=== PATIENT | female | born 1975 | race Caucasian/White ===

== ENCOUNTER 2022-08-21 06:58 | Inpatient (IN) | payer SELFPAY ==
[2022-08-21] VITALS (14 sets, daily range): BP systolic 100–128; BP diastolic 47–67; PULSE 85–104; RESP 16–20; TEMP 36.9–37.5; O2SAT 93–96; BMI 26.1; BMI 25.7
--- NOTE | 2022-08-21 08:09 | ED_ITS ---
HPI - General Adult General Time Seen by Provider: 08:10 Date Seen: 08/21/22 Chief complaint: Abdominal Pain Stated complaint: abdominal pain Time Seen by Provider: 08/21/22 08:09 Source: patient, RN notes reviewed and old records reviewed Mode of arrival: ambulatory Limitations: no limitations History of Present Illness HPI narrative: Patient is a 47-year-old female coming in with ongoing abdominal pain. She started with abdominal pain on 08/19/2022, went to [facility] and was evaluated. She had a normal white blood count, mild hypokalemia, questionable urine for UTI. She was given Rocephin in the department, sent out on Keflex 500 twice a day. She had a CT which showed some changes of enteritis. She has maybe felt warm at home but no documented fever. They also send her home with some oxycodone which did help with the pain but she is out of that now. Her last menstrual period was ending this past Wednesday (today is Wednesday). She initially had nausea vomiting, last vomiting was yesterday but she has not eaten anything. She is able to take some water and keep it down. No diarrhea but states she has passed gas. No urinary symptoms. She has had a prior appendectomy. No noted ill contacts or any travel. Related Data Home Medications Medication Instructions Recorded Confirmed levothyroxine 200 mcg tablet mcg 08/21/22 Allergies Allergy/AdvReac Type Severity Reaction Status Date / Time No Known Drug Allergies Allergy Verified 08/21/22 07:16 Review of Systems Status of ROS: Reports: 10 or more systems reviewed and unremarkable except as noted in History and below PFSH PFSH Social History Smoking Status: Never smoker How often do you have a drink containing alcohol: never AUDIT-C Alcohol total score: 0 Non-prescribed substance use: denies use Exam Const: Vital Signs, click to edit/add: Vital Signs - 24 hr 08/21/22 07:09 08/21/22 08:43 08/21/22 09:30 Temperature 99.5 F Pulse Rate [Pulse Oximeter] 92 90 87 Respiratory Rate 20 Blood Pressure [Le ft Upper Arm] 101/48 L 121/61 108/51 L Pulse Oximetry 96 96 94 Oxygen Delivery Me thod Room Air Room Air Room Air 08/21/22 10:00 08/21/22 11:00 08/21/22 11:30 Temperature Pulse Rate [Pulse Oximeter] 87 85 87 Respiratory Rate Blood Pressure [Le ft Upper Arm] 115/67 119/62 116/56 L Pulse Oximetry 94 93 93 Oxygen Delivery Me thod Room Air Room Air Room Air Documenting provider has reviewed patient's vital signs: yes Common normals: no apparent distress, average body habitus, oriented x3, no limitations, alert and well nourished General appearance: cooperative, comfortable, well kempt, well developed and in distress Other: Patient is up in room slowly pacing, uncomfortable but still very pleasant. HENMT: Common normals: normocephalic, head/scalp atraumatic and hearing grossly normal bilaterally Head and scalp: normocephalic and atraumatic Eye: Common normals: PERRL, EOMs intact bilaterally, conjunctivae normal and no scleral icterus Conjunctiva: conjunctiva(e) normal Pupil: PERRL Neck & C-Spine: Common normals: full ROM, no lymphadenopathy, supple, no meningeal signs, no JVD and thyroid normal Thyroid: thyroid normal Resp: Common normals: normal respiratory effort, no retractions, no use of accessory muscles and clear to auscultation bilaterally Auscultation: clear to auscultation bilaterally Cardio: Common normals: no JVD, regular rate, regular rhythm, S1 normal heart sound, S2 normal heart sound, no gallops, no clicks and no murmurs Rate: regular rate Rhythm: regular rhythm Heart sounds: S1 normal and S2 normal GI: Other: Abdomen is mildly distended, no bowel sounds, tender throughout with mild rebound, no guarding. Neuro: Common normals: oriented x3 Sensorium/orientation: alert Meningeal signs: no meningeal signs Psych: Appearance: well kempt Course Course Hospital Course: We will start an IV, initiate NS 1L over 2 hours, 2mg IV morphine and 15mg IV toradol for pain management. Start with abdominal imaging as she just had a CT, recheck labs. Have concerns clinically for ileus vs. obstruction. May need to proceed to CT if needed but will try to avoid if possible given she just had this imaging, want to avoid this radiation if possible. Reevaluation(s) Reevaluation #1: Saw patient coming back from her abdominal imaging plain films. Could tell that she was a bit uncomfortable from the bumping. Her white blood count is back elevated, was normal at [facility] 2 days ago. Her C-reactive protein is quite elevated. On her flat and upright AC the outline of the large colon but do not see any evidence of any ileus. Given her pain, her worsening clinical symptoms as well as increasing white blood count, do think we need to proceed with reimaging on the CT. Time: 09:17 Consultations Consultation #1: Spoke with Dr. Rinaldi her surgeon regarding this case. She believes the patient can stay here, NPO, supportive cares and IV antibiotics. We discussed Cipro and Flagyl. I then subsequently spoke to our hospitalist Dr. Lucia who will be assuming care. Time: 13:00 Vital Signs Vital signs: Initial Vital Signs Temperature 99.5 F 08/21/22 07:09 Temperature Source Temporal Artery Scan 08/21/22 07:09 Pulse Rate 92 08/21/22 07:09 Blood Pressure 101/48 L 08/21/22 07:09 Blood Pressure Mean 65 08/21/22 07:09 Blood Pressure Position Supine 08/21/22 07:09 Pulse Oximetry 96 08/21/22 07:09 Oxygen Delivery Method 08/21/22 07:09 Vital Signs Temperature 99.5 F 08/21/22 07:09 Pulse Rate 92 08/21/22 07:09 Blood Pressure 101/48 L 08/21/22 07:09 Pulse Oximetry 96 08/21/22 07:09 Oxygen Delivery Method 08/21/22 07:09 Temperature 99.5 F 08/21/22 07:09 Pulse Rate 87 08/21/22 11:30 Respiratory Rate 20 08/21/22 08:43 Blood Pressure 116/56 L 08/21/22 11:30 Pulse Oximetry 93 08/21/22 11:30 Oxygen Delivery Method 08/21/22 11:30 Medical Decision Making Lab Data Lab results reviewed: Yes I reviewed the patient's lab results Labs: Lab Results 08/21/22 08/21/22 08/21/22 Range/Units 08:18 08:28 08:28 WBC 13.68 H (4.50-11.00) K/uL RBC 4.03 (4.00-5.20) m/uL Hgb 11.7 L (12.0-16.0) gm/dL Hct 35.0 (33.0-51.0) % MCV 87 (80-100) fL MCH 29 (26-34) pg MCHC 33 (32-36) gm/dL RDW Coeff of Vivi 13.0 (11.5-15.5) % Plt Count 240 (140-440) K/uL Neut % (Auto) 89.7 H (42.0-72.0) % Lymph % (Auto) 5.4 L (20-44) % [place] % (Auto) 3.2 (0.0-11.0) % Eos % (Auto) 1.0 (0.0-7.0) % Baso % (Auto) 0.1 (0.0-3.0) % Neut # (Auto) 12.30 H (1.7-7.0) K/uL Lymph # (Auto) 0.70 L (0.90-2.90) K/uL [place] # (Auto) 0.40 (0.00-0.90) K/UL Eos # (Auto) 0.10 (0.00-0.50) K/uL Baso # (Auto) 0.00 (0.00-0.30) K/uL Abs Immat Gran (auto) 0.10 (0.00-0.30) K/uL Imm/Tot Granulo (auto) 0.6 % Sodium 132 L (135-149) mmol/L Potassium 3.3 L (3.6-5.1) mmol/L Chloride 97 (96-114) mmol/L Carbon Dioxide 28 (20-32) mmol/L BUN 7 (5-24) mg/dL Creatinine 0.6 (0.5-1.5) mg/dL Estimated Creat Clear 88.41 Estimated GFR 112 ml/min Glucose 91 (60-115) mg/dL Lactate (0.5-1.9) mmol/L Calcium 8.4 (8.4-10.6) mg/dL Total Bilirubin 0.8 (0.1-1.5) mg/dL AST 19 (12-35) U/L ALT 14 (4-35) U/L Alkaline Phosphatase 104 (40-150) U/L C-Reactive Protein 8.9 H (0.5-1.0) mg/dL Total Protein 6.8 (6.0-8.3) g/dL Albumin 3.6 (3.3-5.0) g/dL Urine Color Yellow (Yellow) Urine Appearance Clear (Clear) Urine pH 6.0 (5.0-8.5) Ur Specific Anita 1.020 (1.000-1.030) Urine Protein Trace A (Negative) Urine Glucose (UA) Negative (Negative) Urine Ketones 4+ A (Negative) Urine Blood 1+ A (Negative) Urine Nitrite Negative (Negative) Urine Bilirubin 1+ A (Negative) Urine Urobilinogen 0.2 (0.2-1.0) Ur Leukocyte Esterase Negative (Negative) Urine RBC 0-2 (0-2) Urine WBC 0-2 (0-5) Ur Squamous Epith Cells Few (None-Few) Urine Bacteria None (None) SARS-CoV-2 (PCR) (Negative) 08/21/22 08/21/22 Range/Units 08:28 08:28 WBC (4.50-11.00) K/uL RBC (4.00-5.20) m/uL Hgb (12.0-16.0) gm/dL Hct (33.0-51.0) % MCV (80-100) fL MCH (26-34) pg MCHC (32-36) gm/dL RDW Coeff of Vivi (11.5-15.5) % Plt Count (140-440) K/uL Neut % (Auto) (42.0-72.0) % Lymph % (Auto) (20-44) % [place] % (Auto) (0.0-11.0) % Eos % (Auto) (0.0-7.0) % Baso % (Auto) (0.0-3.0) % Neut # (Auto) (1.7-7.0) K/uL Lymph # (Auto) (0.90-2.90) K/uL [place] # (Auto) (0.00-0.90) K/UL Eos # (Auto) (0.00-0.50) K/uL Baso # (Auto) (0.00-0.30) K/uL Abs Immat Gran (auto) (0.00-0.30) K/uL Imm/Tot Granulo (auto) % Sodium (135-149) mmol/L Potassium (3.6-5.1) mmol/L Chloride (96-114) mmol/L Carbon Dioxide (20-32) mmol/L BUN (5-24) mg/dL Creatinine (0.5-1.5) mg/dL Estimated Creat Clear Estimated GFR ml/min Glucose (60-115) mg/dL Lactate 0.8 (0.5-1.9) mmol/L Calcium (8.4-10.6) mg/dL Total Bilirubin (0.1-1.5) mg/dL AST (12-35) U/L ALT (4-35) U/L Alkaline Phosphatase (40-150) U/L C-Reactive Protein (0.5-1.0) mg/dL Total Protein (6.0-8.3) g/dL Albumin (3.3-5.0) g/dL Urine Color (Yellow) Urine Appearance (Clear) Urine pH (5.0-8.5) Ur Specific Anita (1.000-1.030) Urine Protein (Negative) Urine Glucose (UA) (Negative) Urine Ketones (Negative) Urine Blood (Negative) Urine Nitrite (Negative) Urine Bilirubin (Negative) Urine Urobilinogen (0.2-1.0) Ur Leukocyte Esterase (Negative) Urine RBC (0-2) Urine WBC (0-5) Ur Squamous Epith Cells (None-Few) Urine Bacteria (None) SARS-CoV-2 (PCR) Negative SARS-CoV-2 (Negative) Imaging Data Abdominal x-ray: Attestation: I have reviewed the pertinent imaging results. My impression: I do not see any definitive evidence on her flat and upright, can see the large bowel outlined. Was anticipating that I would probably see more small-bowel but do not. Will await the Radiology over-read an in the interim I am ordering a CT abdomen and pelvis. Radiologist's impression: Patient: IRAIS DAVALOS Facility:?[facility] Patient ID:?[id number] Site Patient ID:?[id number]. Site :?[id number] Study:?XRay Abdomen -08/21/2022 9:03:17 AM Ordering Physician:Jesús Willis Final Report: INDICATION: Abdominal pain. TECHNIQUE: Flat and upright views of the abdomen and pelvis. FINDINGS: Strands of fibrosis or atelectasis at the left lung base. No free air on the upright image. Scattered gas and stool throughout portions of the colon and rectum. No fecal impaction. No colonic constipation. Mild distention of 2 small bowel loops within the left mid to upper quadrant. This is nonspecific. A localized ileus or partial obstruction could not be entirely excluded. Follow-up radiographs are recommended in 24-48 hours depending on the clinical picture. No radiodense urinary tract calculi are identified. IMPRESSION: Two mildly prominent left mid upper quadrant small bowel loops nonspecific. Localized ileus or even an early/partial small-bowel obstruction would be difficult to exclude. Consider radiographic follow up in 24-48 hours. No oscar obstruction. No free air. Dictated by Tirso Bergman MD @ 08/21/2022 9:21:55 AM (Electronic Signature) CT scan - abdomen: Attestation: I have reviewed the pertinent imaging results. Radiologist's impression: Patient: IRAIS DAVALOS Facility:?[facility] Patient ID:?[id number] Site Patient ID:?[id number]. Site :?1975 Study:?CT Abdomen/Pelvis W/ 68CC [id number]/[id number] 9:46:34 AM Ordering Physician:Jesús Willis Final Report: INDICATION: INC ABD PAIN, N/V, WBC ELEVATED TECHNIQUE: CT abdomen and pelvis with 68CC [id number] IV contrast. COMPARISON: None. FINDINGS: The liver is normal in size, shape and attenuation. Moderate distension of the gallbladder without evidence of wall thickening or pericholecystic fluid. No biliary duct dilation. The spleen, adrenal glands and pancreas are within normal limits. The kidneys are unremarkable. No evidence of bowel obstruction. There are several abnormally dilated loops of small bowel throughout the abdomen most notably within the right greater than left lower abdomen. There is prominent surrounding inflammation as well as fluid predominantly contained within the mesentery. Some of which may demonstrate early organization suspicious for abscess, for example on series 4, image 37 measuring 1.1 x 2.2 x 2.4 cm). No evidence of free air or pneumatosis. The uterus appears unremarkable. Low-density lesion right adnexa likely a follicular cyst measuring 1.7 cm. Mild patchy bibasilar atelectasis or consolidation. IMPRESSION: There are several abnormally dilated loops of small bowel throughout the abdomen most notably within the right greater than left lower abdomen. There is prominent surrounding inflammation as well as a small amount of fluid predominantly contained within the mesentery. Some of the fluid may demonstrate early organization suspicious for abscess, for example on series 4, image 37 measuring 1.1 x 2.2 x 2.4 cm. Overall, findings are concerning for severe enteritis predominantly involving the distal small bowel (ileitis). Of note, the appendix is not definitely visualized and acute appendicitis (perhaps ruptured) can`t entirely be excluded. Mild patchy bibasilar atelectasis or consolidation. Please note that all CT scans at this facility use dose modulation, iterative reconstruction, and/or weight-based dosing when appropriate to reduce radiation dose to as low as reasonably achievable. Dictated by Bautista Vitale MD @ 08/21/2022 11:03:31 AM (Electronic Signature) Critical Care Time Critical Care Time Critical Care Time: No Discharge Plan Discharge Clinical Impression: Enteritis Patient Disposition: Admitted As Inpatient Condition: Stable Prescriptions: No Action levothyroxine 200 mcg tablet Label Comments: TAKE 1 TABLET EVERY DAY BY ORAL ROUTE. Follow Up/Referrals: Cesar Quintana MD [Primary Care Provider] -
--- NOTE | 2022-08-21 08:16 | CRLHL7_ITS ---
For Patients: As a result of the Century Cures Act, medical imaging exams and procedure reports are released immediately into your electronic medical record. You may view this report before your referring provider. If you have questions, please contact your health care provider. INDICATION: Abdominal pain. TECHNIQUE: Flat and upright views of the abdomen and pelvis. FINDINGS: Strands of fibrosis or atelectasis at the left lung base. No free air on the upright image. Scattered gas and stool throughout portions of the colon and rectum. No fecal impaction. No colonic constipation. Mild distention of 2 small bowel loops within the left mid to upper quadrant. This is nonspecific. A localized ileus or partial obstruction could not be entirely excluded. Follow-up radiographs are recommended in 24-48 hours depending on the clinical picture. No radiodense urinary tract calculi are identified. IMPRESSION: Two mildly prominent left mid upper quadrant small bowel loops nonspecific. Localized ileus or even an early/partial small-bowel obstruction would be difficult to exclude. Consider radiographic follow up in 24-48 hours. No oscar obstruction. No free air. Dictated by Tirso Bergman MD @ 08/21/2022 9:21:55 AM (Electronically Signed)
--- OUTSIDE RECORDS SUMMARY | 2022-08-21 08:21 | XMS_ITS | Encounter Summary ---
:1975 Author Reason for Visit None recorded. Assessment and Plan 1. Hypothyroidism Increase levothyroxine from 175 to 200m cg. Recheck thyroid levels 4 weeks. Will call patient in 2 weeks to check on symptoms. She should call in the meantime with concerns. ? levothyroxine 200 mcg tablet ? TSH, serum or plasma ? T4, free, serum ? T3, free, serum or plasma 2. Screening for malignant neoplasm of breast Screening mammogram. Follow up pending results. ? MAMMO, screening, bilateral - ABRAN vi sit, Cymro-speaking 3. Screening for malignant neoplasm of colon FOBT kit provided to patient ? fecal occult blood test (FOBT) kit Discussion Note: None recorded.Patient educational handouts: No information available. Plan of Care Reminders Provider Appointments Lab Work 09/01/2022 2:00PM Willa [facility] CPT Lab TSH, Serum or Plasma 09/05/2022 ? ? T4, Free, Serum 09/05/2022 ? ? T3, Free, Serum or Plasma 09/05/2022 ? Referral None recorded. ? ? Procedures None recorded. ? ? Surgeries None recorded. ? ? Imaging MAMMO, Screening, Bilateral 08/05/2022 ? Medications Name Start Date ? ? cholecalciferol (vitamin D3) 50 mcg (2,000 unit) capsu le ? TAKE 1 TABLET EVERY DAY BY ORAL ROUTE. cholecalciferol (vitamin D3) 50 mcg (2,000 unit) table t ? Take 1 tablet every day by oral route. levothyroxine 175 mcg tablet ? TAKE 1 TABLET EVERY DAY BY ORAL ROUTE. levothyroxine 200 mcg tablet ? TAKE 1 TABLET EVERY DAY BY ORAL ROUTE. Medications Administered None recorded. Vitals Height Weight BMI Blood Pressure 4 ft 10.5 in 138 lbs 28.4 kg/m2 96/60 mm[Hg] Results Lab Results None recorded. Allergies Code Code System Name Reaction Severity Onset NKDA ? ? ? Notes: Allergen: NO KNOWN ALLERGIES Problems Name Status Onset Date Source ? Helicobacter Pylori-associated Gastritis Active 019 ? 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 Hypothyroidism Active 01/06/2021 ? Vitamin D Deficiency Active 01/06/2021 ? 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 Procedures Date Name Performed by ? 10/11/1985 Appendectomy Information not avai lable 08/05/2022 MAMMO, Screening, Bilateral Information not available Vaccine List None recorded. Social History Tobacco Smoking Status Never Smoker Live alone or with others? with others Notes: dae wild and daughter's boyfriend What is your level of alcohol None consumption? How many children do you have? 4 Are you currently employed? Y Which illicit or recreational drugs None have you used? Are you sexually active? N What is your level of caffeine Moderate consumption? What is your exercise level? None What is your occupation? [employer] Family History Relation Problem Onset Age of Age Notes Father No current problems or (No Information) N/A ( No Notes) disability Mother No current problems or (No Information) N/A ( No Notes) disability Functional Status Unknown. Past Encounters 08/05/2022 Hypothyroidism; Screening for Malignant Neoplasm of Breast; Screening for Malignant Neoplasm of Colon [place], [place]: [address] [place] [address], Ph. History of Present Illness Note: <div>Alva presents for thyroid follow up and a referral for screening mammogram </div><div>
</div><div>1. Hypothyroidism: Her dose of Levothyroxine was increased from 150 to 175mcg ~2 weeks ago. Since before the dose increase, she has felt more tired, her hair is falling out, her skin is dry, and she's noticed diarrhea. The dose increase did not seem to help. Last TSH 3 weeks ago was 124.23. </div><div>
</div><div>2. ABRAN visit for mammogram </div><div>Last mammogram date and result: 02/2021 - normal &lt ;/div><div>Personal history of breast issues or concerns: none </div><div>Curent Breast ROS: denies breast lumps, pain, nipple discharge/itching, rash, change in appearance</div><div>Family history of breast cancer: none </div><div>Breast self awareness discussed - patient performs regularly at home</div>Review of Systems: ROS as noted in the HPI Review of Systems None recorded. Physical Exam ? 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 Mood and Affect: active and alert, normal mood, norm al affect Skin: Appearance: no rashes, no le sions Neck: Neck: supple, trachea midlin e, no masses, FROM. Thyroid: no nodules, non-tender, diffusely enlarg ed Lungs: Auscultation: clear to auscu ltation, no wheezing, no rales/crackles, no rhonchi Cardiovascular: Auscultation: RRR, no murmur Breast: Inspection/Palpation: no ski n changes, no abnormal secretions, nipple appearance normal, no tender ness, no distinct masses Lymph Nodes: Palpation: non tender subman dibular nodes, non tender axillary nodes
--- OUTSIDE RECORDS SUMMARY | 2022-08-21 08:21 | XMS_ITS ---
:1975 Author Care Team Providers Name Role Phone Agusto Minaya Primary Care Provider Unavailable Allergies Code Code System Name Reaction Severity Status Onset NKDA ? Notes: Allergen: NO KNOWN ALLERGIES Medications Name Status Start Date Stop Date ? ? amoxicillin 500 mg capsule Completed 03/15/201908/20 take 1 capsule by oral route every 8 hours cephalexin 500 mg capsule Completed 03/13/20152014 take 1 capsule PO QID x 10 cholecalciferol (vitamin D3) 1,250 mcg (50,000 unit) capsule Com pleted ? 05/13/2022 TAKE 1 CAPSULE BY MOUTH ONCE A WEEK cholecalciferol (vitamin D3) 25 mcg (1,000 unit) capsule Complet ed ? 05/13/2022 Take 1 capsule every day by oral route. cholecalciferol (vitamin D3) 25 mcg (1,000 unit) tablet Complete d ? 05/13/2022 TAKE ONE TABLET BY MOUTH EVERY DAY. cholecalciferol (vitamin D3) 50 mcg (2,000 unit) capsule Active ? Not available TAKE 1 TABLET EVERY DAY BY ORAL ROUTE. cholecalciferol (vitamin D3) 50 mcg (2,000 unit) tablet Active ? Not available Take 1 tablet every day by oral route. clarithromycin 500 mg tablet Completed 03/15/201907/2020 take 1 tablet by oral route every 12 hours Florajen Acidophilus 20 billion cell capsule Completed ? 05/13/2022 levothyroxine 112 mcg tablet Completed 07/19/2017 take 1 tablet by oral route every day levothyroxine 137 mcg tablet Completed ? 05/2022 TAKE 1 TABLET BY MOUTH DAILY levothyroxine 150 mcg tablet Completed ? 03/2022 TAKE 1 TABLET EVERY DAY BY ORAL ROUTE. levothyroxine 175 mcg tablet Active ? Not available TAKE 1 TABLET EVERY DAY BY ORAL ROUTE. levothyroxine 200 mcg tablet Active ? Not available TAKE 1 TABLET EVERY DAY BY ORAL ROUTE. multivitamin tablet Completed ? 05/13/2022 take 1 tablet by oral route every day naproxen sodium 220 mg tablet Completed 03/13/2015 take 1 tablet by oral route every 12 hours as needed omeprazole 20 mg capsule,delayed release Completed 019 05/13/2022 take 1 capsule by oral route 2 times every day before a meal Synthroid 125 mcg tablet Completed ? take 1 tablet by oral route every day terbinafine HCl 250 mg tablet Completed ? Vitamin D2 1,250 mcg (50,000 unit) capsule Completed ? 01/08/2021 take 1 capsule by oral route three times per week Problems Name Status Onset Date Source ? Helicobacter Pylori-associated Gastritis Active ? 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 Hypothyroidism Active 01/06/2021 ? Vitamin D Deficiency Active 01/06/2021 ? 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 Procedures Date Name Performed by ? 10/11/1985 Appendectomy Information not avai lable 01/08/2021 MAMMO, Screening, Bilateral Information not available 08/05/2022 MAMMO, Screening, Bilateral Information not available Results Lab Results Date Name Specimen Result Interpretation Description Value Range Status Address ? 07/14/2022 TSH + Free T4, High Tsh 124.23 0.35-4.94 Fi nal [facility] Serum uIU/mL uIU/mL Clinic: [address], [place] 04/08/2022 TSH + Free T4, ? TSH Value 1.59 ? F inal [facility] Serum Health Laboratory : [address], [facility] 04/08/2022 TSH + Free T4, High Tsh 7.32 0.35-4.94 Fi nal [facility] Serum uIU/mL uIU/mL Medical Laboratori es : [address], [facility] 03/19/2021 T4, Free, Serum ? Tsh 1.08 ? [facility] : [address], [facility] 03/19/2021 TSH, Serum or ? Tsh 1.78 ? Final Plasma 02/05/2021 TSH + Free T4, ? Tsh 0.13 ? Final Serum 01/08/2021 Pap, LB + hr HPV ? No ? ? ? [facility] observation [place] recorded. Clinic - Lab: [address], [place] 01/08/2021 Vitamin D, Low Vitamin D 12.7 30-80 Final [facility] 25-Hydroxy, Total NG/mL NG/mL Healt h Total, Serum Labo ratory: [address], [place] ? ? Normal Free T4 1.09 0.7-1.8 Final [facility] NG/dL NG/dL Health Laboratory : [address], [place] 01/08/2021 Thyroperoxidase High Anti Tpo 74.82 <5.61 F inal Ab, Serum Antibody IU/mL IU/mL 01/08/2021 TSH + Free T4, ? Tsh 12.09 ? Final Serum 12/04/2020 TSH, Serum or ? Tsh 35.04 ? Final Plasma 08/27/2020 TSH, Serum or ? Tsh 238.63 ? Final [facility] One: [address] 08/26/2020 CMP, Serum or ? No ? ? ? Plasma observation recorded. 08/26/2020 CBC W/ Auto Diff ? No ? ? ? observation recorded. 08/26/2020 Lipid Panel, ? No ? ? ? Serum observation recorded. 08/26/2020 CMP, Serum or ? No ? ? ? Plasma observation recorded. ? Urinalysis, ? No ? ? ? Complete observation recorded. Past Encounters 08/05/2022 Hypothyroidism; Screening for Malignant Neoplasm of Breast; Screening for Malignant Neoplasm of Colon [place]enia [place], [employer]: [address] [place] [address], Ph. 05/13/2022 Hypothyroidism; Vitamin D Deficiency; Pl [place] Fasciitis Yesenia East [employer]ER: [address] [place] [address], Ph. Social History Tobacco Smoking Status Never Smoker Vaccine List None recorded. Plan of Care Reminders Provider Appointments None recorded. ? ? Lab None recorded. ? ? Referral None recorded. ? ? Procedures None recorded. ? ? Surgeries None recorded. ? ? Imaging None recorded. ? ? Vitals 08/05/2022 01:00PM [facility] 46 Height Weight BMI Blood Pressure 4 ft 10.5 in 138 lbs 28.4 kg/m2 96/60 mm[Hg] 05/13/2022 03:15PM ESTABLISHED PATIENT Height Weight BMI Blood Pressure 4 ft 10.5 in 142 lbs 29.2 kg/m2 98/58 mm[Hg] 01/08/2021 01:00PM [facility] OFFICE VISIT Height Weight BMI Blood Pressure 4 ft 10.5 in 142.5 lbs 29.3 kg/m2 106/67 mm[Hg] 07/03/2019 Blood Pressure 102/64 mm[Hg] 03/15/2019 Blood Pressure 110/60 mm[Hg] 02/15/2019 Blood Pressure 107/61 mm[Hg] 07/21/2018 Blood Pressure 107/71 mm[Hg] 03/16/2018 Blood Pressure 90/52 mm[Hg] 02/02/2018 Blood Pressure 99/61 mm[Hg] 07/20/2017 Blood Pressure 106/50 mm[Hg] 03/24/2017 Blood Pressure 90/56 mm[Hg] 08/19/2016 Blood Pressure 96/55 mm[Hg] 08/03/2016 Blood Pressure 97/65 mm[Hg] 03/16/2016 Blood Pressure 100/65 mm[Hg] 05/15/2015 Blood Pressure 95/57 mm[Hg] 03/13/2015 Blood Pressure 96/52 mm[Hg]
--- OUTSIDE RECORDS SUMMARY | 2022-08-21 08:21 | XMS_ITS | Clinical Summary ---
:1975 Author Organization [facility] [place] [address] Care Team Providers Name Role Phone Madhuri Aquino RN, CUPOLA TAPPER Primary Care Provider Allergies No known active allergies Medications Medication Sig Dispensed Refills Start Date End Date Status Take 1 tablet by 30 tablet 5 04/24/2014 Ac tive vitamin-folic acid 1 mouth once daily. mg ( VITAMIN) tablet/capsule ethinyl Apply 1 Patch on 9 Patch 3 07/09/2014 Ac tive estradiol-norelgestr dry, clean, om (ORTHO EVRA) hairless skin once 150-35 mcg/24 hr weekly. Use for 3 patch weeks, then use no patch for 1 week Breast Pump - For home use. 1 unit 0 08/02/2014 A ctive Purchase Gestation age at delivery: 38 6/7 weeks. Reason for need: back to work. Length of need: PRN levothyroxine Take 1 tablet by 30 tablet 0 12/10/2014 Active (SYNTHROID) 100 mcg mouth before tabletIndications: breakfast. Hypothyroid levothyroxine Take 1 tablet by 60 tablet 0 12/14/2014 Active (SYNTHROID) 125 mcg mouth before tabletIndications: breakfast. Hypothyroid ondansetron (ZOFRAN Place 1 Tablet (4 10 Tablet 0 08/19/2022 Active ODT) 4 mg mg) on the tongue disintegrating every 8 hours if tabletIndications: needed for Generalized Nausea/Vomiting. abdominal pain potassium chloride Take 1 Tablet (10 6 Tablet 0 08/19/2022 Active (K-DUR, KLOR-CON mEq) by mouth two M10) 10 mEq times daily with tabletIndications: meals. Hypokalemia HYDROcodone-acetamin Take 1 Tablet by 5 Tablet 0 08/19/2022 Active ophen (NORCO) 5-325 mouth every 4 hours mg per if needed for Pain. tabletIndications: Max acetaminophen Generalized dose: 4000 mg in 24 abdominal pain hrs. cephalexin (KEFLEX) Take 1 Capsule (500 14 Capsule 0 2 Active 500 mg mg) by mouth two 2 capsuleIndications: times daily for 7 Urinary tract days. infection without hematuria, site unspecified Active Problems Problem Noted Date Gestational diabetes 04/07/2014 Abdominal pain in 03/20/2014 related carpal tunnel syndrome, antepartum 0 03/20/2014 Hypothyroidism in , antepartum 03/20/2014 Other normal , not first 02/16/2014 Overview: Late care starting at 24 weeks. Will transfer care to Dr. Quintana for co ntinued care. Kimmie Rivas D.O. 02/18/2014 10:44 AM Advanced maternal age in 02/16/2014 Late care 02/16/2014 Vitamin D deficiency 12/23/2011 Hypothyroid Encounters Date Type Specialty Care Team Description 08/19/2022 Emergency Valdez Fernandes Gener alized abdominal pain (Primary Dx); Urinary tract i nfection without hematuria, site unspecified; Hypokalemia 08/19/2022 Travel 07/14/2022 Lab Requisition Yesenia East NP from Last 3 Months Immunizations Name Administration Dates Next Due Influenza, IIV4 07/18/2019, 07/09/2014 Tdap 03/20/2014 Social History Tobacco Use Types Packs/Day Years Used Date Never Smoker Smokeless Tobacco: Never Used Tobacco Cessation: Counseling Given: Yes Alcohol Use Standard Drinks/Week Comments No 0 (1 standard drink = 0.6 oz pure alcoho l) Sex Assigned at Date Recorded Not on file COVID-19 Exposure Response Date Recorded In the last 10 days, have you been in contact with No / Unsu re 08/19/2022 2:56 PM SHAREPOINT DESIGNER DEVELOPER someone who was confirmed or suspected to have Coronavirus/COVID-19? Obstetrics History Para Term AB IAB SAB Ectopic Multiple Living Live Births 5 3 3 1 1 3 Date Outcome GA Total Labor/2nd/3rd Weight Sex Delivery Anes PTL Samantha A 1 A5 Name Clin Labor Comments: System Generated. Please review and update details. SAB Term 39w0d Vag Term 40w0d Vag Term 42w0d Vag Last Filed Vital Signs Vital Sign Reading Time Taken Comments Blood Pressure 101/64 08/19/2022 4:40 PM SHAREPOINT DESIGNER DEVELOPER Pulse 107 08/19/2022 4:40 PM [employer]POINT DESIGNER DEVELOPER Temperature 36.8 ??C (98.2 ??F) 08/19/2022 3:00 PM SH[employer]POINT DESIGNER DEVELOPER Respiratory Rate 16 08/19/2022 3:00 PM SHAREPOINT DESIGNER DEVELOPER Oxygen Saturation 97% 08/19/2022 4:40 PM SHAREPOINT DESIGNER DEVELOPER Inhaled Oxygen Concentration - - Weight 61.1 kg (134 lb 11.2 oz) 08/19/2022 3:00 PM SH[employer]POINT DESIGNER DEVELOPER Height 154.9 cm (5' 1) 08/19/2022 3:00 PM SHAREPOINT DESIGNER DEVELOPER Body Mass Index 25.45 08/19/2022 3:00 PM SHAREPOINT DESIGNER DEVELOPER Plan of Treatment Upcoming Encounters Date Type Specialty Care Team Description 09/16/2022 Appointment Health Maintenance Due Date Last Done Comments COVID-19 vaccine series (#1) 1975 Depression screening for age 12+ 1988 BMI (ht and wt on same day) for 01/29/1994 age 18+ Hepatitis C screening for age 0401/29/1994 18-79 Colonoscopy through age 75 01/29/2021 Mammogram for age 45-75 02/26/2022 02/26/2021 Influenza for age 9-49 06/11/2022 07/18/2019, 07/09/2014 Pap test for age 21-65 01/09/2024 01/08/2021, 01/08/2021, 12/12/2014, Additional history exists Tetanus booster 03/20/2024 03/20/2014 Lipids for age 45-75 12/04/2025 12/04/2020, 08/26/2020, 03/16/2016 Tdap Completed 03/20/2014 Procedures Procedure Name Priority Date/Time Associated Comments Diagnosis CT ABDOMEN PELVIS W STAT 08/19/2022 4:05 PM Re sults for this [employer] DESIGN[employer] DEVELOPER procedure are i n the results section. URINE CULTURE DOMINGO 08/19/2022 3:29 PM Results for this [employer]POINT DESIGNER DEVELOPER procedure are i n the results section. URINALYSIS STAT 08/19/2022 3:29 PM Results f or this MICROSCOPIC [employer] DESIGNER DEVELOPER procedure are i n the results section. URINE STAT 08/19/2022 3:29 PM Result s for this [employer]POINT DESIGNER DEVELOPER procedure are i n the results section. UA W/ SEDIMENT EXAM STAT 08/19/2022 3:29 PM Re sults for this REFLEXED PER CRITERIA SHAREPOINT DESIGNER DEVELOPER proced ure are in the results section. LIPASE STAT 08/19/2022 3:17 PM Results f or this [employer] DESIGN[employer] DEVELOPER procedure are i n the results section. HEPATIC FUNCTION STAT 08/19/2022 3:17 PM Resul ts for this PANEL SHAREPOINT DESIGNER DEVELOPER procedure are i n the results section. CBC W PLT NO DIFF STAT 08/19/2022 3:17 PM Resu lts for this [employer]POINT DESIGNER DEVELOPER procedure are i n the results section. BASIC METABOLIC PANEL STAT 08/19/2022 3:17 PM Results for this [employer] DESIGN[employer] DEVELOPER procedure are i n the results section. T4,FREE Routine 07/14/2022 1:16 PM Results f or this CDT procedure are i n the results section. TSH WITH REFLEX Routine 07/14/2022 1:16 PM Result s for this CDT procedure are i n the results section. from Last [address] ABDOMEN PELVIS W (08/19/2022 4:05 PM SHAREPOINT DESIGNER DEVELOPER) Anatomical Region Laterality Modality Abdomen, Pelvis, AORTA, LIVER, SPLEEN Co mputed Tomography Specimen (Source) Anatomical Collection Method Collection Time Re ceived Time Location / / Volume Laterality 08/19/2022 4:47 PM SHAREPOINT DESIGNER DEVELOPER Narrative 08/19/2022 4:47 PM SHAREPOINT DESIGNER DEVELOPER For Patients: ??As a result of the Century Cures Act, medical imaging exams and procedure report s are released immediately into your [facility] medical record. ??You may view this report before your referring provider. ??If you have questions, please contact your health care provider. Indication: Acute abdominal Pain Technique: Volumetric multidetector CT images of th e abdomen and pelvis were obtained after the administration of intravenous contrast. 100 cc Omnipaque 300 low osmolar intrave nous contrast Comparison: None available. Findings: The lung bases are clear. The liver is enlarged with mild hepatic steatosis. The portal vein is patent. The gallbladder is unremarkable without evidence of radiopaque calculus. There is no significant common biliary d uctal dilatation or abrupt cut off. The spleen is normal in enhancement and size. There is mild chronic gastritis change w ith minimal thickening of the gastric antrum and minimal gastric mucosal hyperemia. The pancreas is normal in enhancement wi thout significant atrophy. The adrenal glands are unremarkable. The kidneys demonstrate preserved cortic omedullary differentiation without evidence of obstructive uropathy. There is demonstration of focal segmenta l thickening and mild perienteric inflammatory change of the distal small bowel. The appendix is not visualized. There is no significant mesenteric, retr operitoneal, or pelvic sidewall lymph nodes. The aorta is nonaneurysmal. ??There is n o significant atherosclerotic disease appreciated. There is questionable mild thickening ve rsus nondistention of the bladder. There is a mildly heterogeneous appearing myometrium. There is no free fluid or free air. There is a small fat containing umbilica l hernia. The lumbar vertebral body heights are gr ossly maintained in satisfactory alignment without evidence of displaced fracture, lytic or blastic lesion. Impression: Demonstration of marked mucosal enhancem ent and dilatation of distal loops of small bowel with questionable mild perienteric inflammatory change likely representing evolving infectious or inflammatory enteritis. Mild hepatomegaly and hepatic steatosis. Mild chronic gastritis changes. No other acute intra-abdominal abnormali ties are appreciated. Please note that all CT scans at this [facility] use dose modulation, iterative reconstruction, and/or weight-based dosing when appropriate to reduce radiation dose to as low as reasonably achievable. Dictated by Dwight Lemus MD @ 2 4:47:55 PM (Electronically Signed) Procedure Note Dwight Lemus MD - 08/19/2022Fo rmatting of this note might be different from the original. For Patients: As a result of the ntury Cures Act, medical imaging exams and procedure reports are released immediately into your electronic medical record. You may view this report before your referring provider. If you have questions, please contact [facility] health care provider. Indication: Acute abdominal Pain Technique: Volumetric multidetector CT images of e abdomen and pelvis were obtained after the administration of intravenous contrast. 100 cc Omnipaque 300 low osmolar intrave nous contrast Comparison: None available. Findings: The lung bases are clear. The liver is enlarged with mild hepatic steatosis. The portal vein is patent. The gallbladder is unremarkable without evidence of radiopaque calculus. There is no significant common biliary d uctal dilatation or abrupt cut off. The spleen is normal in enhancement and size. There is mild chronic gastritis change w ith minimal thickening of the gastric antrum and minimal gastric mucosal hyperemia. The pancreas is normal in enhancement wi thout significant atrophy. The adrenal glands are unremarkable. The kidneys demonstrate preserved cortic omedullary differentiation without evidence of obstructive uropathy. There is demonstration of focal segmenta l thickening and mild perienteric inflammatory change of the distal small bowel. The appendix is not visualized. There is no significant mesenteric, retr operitoneal, or pelvic sidewall lymph nodes. The aorta is nonaneurysmal. There is no significant atherosclerotic disease appreciated. There is questionable mild thickening ve rsus nondistention of the bladder. There is a mildly heterogeneous appearing myometrium. There is no free fluid or free air. There is a small fat containing umbilica l hernia. The lumbar vertebral body heights are gr ossly maintained in satisfactory alignment without evidence of displaced fracture, lytic or blastic lesion. Impression: Demonstration of marked mucosal enhancem ent and dilatation of distal loops of small bowel with questionable mild perienteric inflammatory change likely representing evolving infectious or inflammatory enteritis. Mild hepatomegaly and hepatic steatosis. Mild chronic gastritis changes. No other acute intra-abdominal abnormali ties are appreciated. Please note that all CT scans at this [facility] use dose modulation, iterative reconstruction, and/or weight-based dosing when appropriate to reduce radiation dose to as low as reasonably achievable. Dictated by Dwight eLmus MD @ 2 4:47:55 PM (Electronically Signed) Valdez Fernandes MD CT (ABNORMAL) URINALYSIS MICROSCOPIC (08/19/2022 3:29 PM [facility]) [facility] gist Method Time Signature RBC 0-2 0-2, None 08/19/2022 [place] Seen /HPF 3:41 PM [facility] WBC 6-10 (A) 0-2, 3-5, 08/19/2022 [place] None Seen 3:41 PM [facility] /HPF LABORATORY BACTERIA Few None Seen, 08/19/2022 [place] Rare, Few 3:41 PM [facility] Bacteria/H LABORATORY PF EPITHELIAL Few None Seen, 08/19/2022 [place] CELLS Few 3:41 PM [facility] Epi/HPF LABORATORY Specimen Anatomical Collection Method Collection Time Receive d Time (Source) Location / / Volume Laterality Urine URINE SPECIMEN / Non-Blood / 08/19/2022 3:29 PM 08/19 3:33 Unknown Unknown SHAREPOINT DESIGNER DEVELOPER PM SHAREPOINT DESIGNER DEVELOPER Valdez Fernandes MD URINE Performing Organization Address City/[facility]/ZIP Code Phon e Number [facility] [address] [place] [address] URINE CULTURE (08/19/2022 3:29 PM SHAREPOINT DESIGNER DEVELOPER) athologist Signature CULTURE No growth 08/20/2022 [facility] (<1,000 1:18 PM SHAREPOINT DESIGNER DEVELOPER LABORATORY-CENT CFU/mL) [facility] Specimen Anatomical Collection Method Collection Time Receive d Time (Source) Location / / Volume Laterality Urine URINE SPECIMEN / Non-Blood / 08/19/2022 3:29 PM 08/19 3:33 Unknown Unknown SHAREPOINT DESIGNER DEVELOPER PM SHAREPOINT DESIGNER DEVELOPER Valdez Fernandes MD MICROBIOLOGY Performing Organization Address City/[facility]/ZIP Code Phon e Number [employer] [address] [place] [address] LABORATORY-CENTRAL 2000 LABORATORY (ABNORMAL) UA W/ SEDIMENT EXAM REFLEXED PER CRITERIA (08/19/2022 3:29 PM SHAREPOINT DESIGNER DEVELOPER) [facility] gist Method Time Signature COLOR Yellow Yellow Color 08/[facility]/[address] [facility] [facility] 3:39 PM [facility] CLARITY Clear Clear 08/19/2022 [place] Clarity 3:39 PM [facility] SPECIFIC <=1.005 (A) 1.010, 08/19/2022 [place] GRAVITY,URINE 1.015, 3:39 PM [facility] MEDICAL 1.020, 1.025 [facility] PH,URINE 6.0 6.0, 7.0, 08/19/2022 [place] 8.0, 5.5, 3:39 PM [facility] MEDICAL 6.5, 7.5, CENTER 8.5 LABORATORY UROBILINOGEN, Normal Normal EU/dl 08/[facility]2022 [facility] 3:39 PM [facility] PROTEIN, Negative Negative 08/19/[address] [address] URINE mg/dL 3:39 PM [facility] GLUCOSE, Negative Negative 08/19/2022 [place] URINE mg/dL 3:39 PM [facility] KETONES,URINE Negative Negative 08/19/2022 [place] mg/dL 3:39 PM [facility] LABORATORY BILIRUBIN,URI Negative Negative 08/19/2022 [place] NE 3:39 PM [facility] OCCULT Trace (A) Negative 08/19/2022 [place] BLOOD,URINE 3:39 PM [facility] NITRITE Negative Negative 08/19/2022 [place] 3:39 PM [facility] LEUKOCYTE Moderate (A) Negative 08/19/2022 [place] ESTERASE 3:39 PM [facility] Specimen Anatomical Collection Method Collection Time Receive d Time (Source) Location / / Volume Laterality Urine URINE SPECIMEN / Non-Blood / 08/19/2022 3:29 PM 08/19 3:33 Unknown Unknown SHAREPOINT DESIGNER DEVELOPER PM SHAREPOINT DESIGNER DEVELOPER Valdez Fernandes MD URINE Performing Organization Address City/[facility]/ZIP [facility] Phon e Number [facility] [address] [place] [address] URINE (08/19/2022 3:29 PM SHAREPOINT DESIGNER DEVELOPER) Analysis Performed At Patho logist Time Signature ,URIN Negative Negative 08/19/2022 [place] E 3:37 PM [facility] Specimen Anatomical Collection Method Collection Time Receive d Time (Source) Location / / Volume Laterality Urine URINE SPECIMEN / Non-Blood / 08/19/2022 3:29 PM 08/19 3:33 Unknown Unknown SHAREPOINT DESIGNER DEVELOPER PM SHAREPOINT DESIGNER DEVELOPER Valdez Fernandes MD URINE Performing Organization Address City/[facility]/ZIP [facility] Phon e Number [facility] [address] [place] [address] (ABNORMAL) CBC W PLT NO DIFF (08/19/2022 3:17 PM SHAREPOINT DESIGNER DEVELOPER) Patholo gist Method Time Signature WHITE BLOOD 10.3 4.5 - 11.0 08/19/2022 [place] COUNT thou/cu mm 3:23 PM [facility] RED BLOOD COUNT 4.11 4.00 - 08/19/2022 [place] 5.20 3:23 PM [facility] mil/cu mm LABORATORY HEMOGLOBIN 11.9 (L) 12.0 - 08/19/2022 [place] 16.0 g/dL 3:23 PM [facility] HEMATOCRIT 36.0 33.0 - 08/19/2022 [place] 51.0 % 3:23 PM [facility] MCV 88 80 - 100 08/19/2022 [place] fL 3:23 PM [facility] MCH 29.0 26.0 - 08/19/2022 [place] 34.0 pg 3:23 PM [facility] MCHC 33.1 32.0 - 08/19/2022 [place] 36.0 g/dL 3:23 PM [facility] RDW 13.4 11.5 - 08/19/2022 [place] 15.5 % 3:23 PM [facility] PLATELET COUNT 213 140 - 440 08/19/2022 [place] thou/cu mm 3:23 PM [facility] MPV 9.8 6.5 - 11.0 08/19/2022 [place] fL 3:23 PM [facility] Specimen Anatomical Collection Method / Collection Time Recei phillip Time (Source) Location / Volume Laterality Blood BLOOD SPECIMEN / Venipuncture / 08/19/2022 3:17 2021 3:20 Unknown Unknown PM SHAREPOINT DESIGNER DEVELOPER PM SHAREPOINT DESIGNER DEVELOPER Valdez Fernandes MD HEMATOLOGY Performing Organization Address City/[facility] Code Phon e Number [facility] [address] [place] [address] LIPASE (08/19/2022 3:17 PM SHAREPOINT DESIGNER DEVELOPER) athologist Signature LIPASE 27.0 8.0 - 78.0 08/19/2022 [place] IU/L 3:40 PM [facility] Specimen Anatomical Collection Method / Collection Time Recei phillip Time (Source) Location / Volume Laterality Blood BLOOD SPECIMEN / Venipuncture / 08/19/2022 3:17 2021 3:20 Unknown Unknown PM SHAREPOINT DESIGNER DEVELOPER PM SHAREPOINT DESIGNER DEVELOPER Valdez Fernandes MD CHEMISTRY Performing Organization Address City/[facility]/ZIP [facility] Phon e Number [facility] [address] [place] [address] HEPATIC FUNCTION PANEL (08/19/2022 3:17 PM SHAREPOINT DESIGNER DEVELOPER) P athologist Signature ALBUMIN 4.0 3.5 - 5.2 08/19/2022 [place] g/dL 3:39 PM [facility] PROTEIN,TOTAL 7.2 6.0 - 8.0 08/19/2022 [place] g/dL 3:39 PM [facility] GLOBULIN 3.2 2.0 - 3.7 08/19/2022 [place] g/dL 3:39 PM [facility] A/G RATIO 1.3 1.0 - 2.0 08/19/2022 [place] 3:39 PM [facility] BILIRUBIN,TOTAL 1.0 0.2 - 1.2 08/19/2022 [place] mg/dL 3:39 PM [facility] BILIRUBIN,DIRECT 0.4 0.1 - 0.5 08/19/2022 [place] mg/dL 3:39 PM [facility] BILIRUBIN,INDIRE 0.6 0.2 - 0.8 08/19/[address] [place] [address] mg/dL 3:39 PM [facility] ALK PHOSPHATASE 75 50 - 136 08/19/2022 [place] IU/L 3:39 PM [facility] ALT (SGPT) 14 8 - 45 08/19/2022 [place] IU/L 3:39 PM [facility] AST (SGOT) 15 2 - 40 08/19/2022 [place] IU/L 3:39 PM [facility] Specimen Anatomical Collection Method / Collection Time Recei phillip Time (Source) Location / Volume Laterality Blood BLOOD SPECIMEN / Venipuncture / 08/19/2022 3:17 2021 3:20 Unknown Unknown PM SHAREPOINT DESIGNER DEVELOPER PM SHAREPOINT DESIGNER DEVELOPER Valdez Fernandes MD CHEMISTRY Performing Organization Address City/State/ZIP Code Phon e Number [facility] [address] [place] [address] (ABNORMAL) BASIC METABOLIC PANEL (08/19/2022 3:17 PM [facility]) Analysis Performed At Patho logist Time Signature SODIUM 138 135 - 145 08/19/2022 [place] mmol/L 3:38 PM [facility] POTASSIUM 3.2 (L) 3.5 - 5.0 08/19/2022 [place] mmol/L 3:38 PM [facility] CHLORIDE 106 98 - 110 08/19/2022 [place] mmol/L 3:38 PM [facility] CO2,TOTAL 23 21 - 31 08/19/2022 [place] mmol/L 3:38 PM [facility] ANION GAP 9 5 - 18 08/19/2022 [place] 3:38 PM [facility] GLUCOSE 126 (H) 65 - 100 08/19/2022 [place] mg/dL 3:38 PM [facility] CALCIUM 8.9 8.5 - 10.5 08/19/2022 [place] mg/dL 3:38 PM [facility] BUN 9 8 - 25 08/19/2022 [facility] mg/dL 3:38 PM [facility] CREATININE 0.69 0.57 - 08/19/2022 [facility] 1.11 mg/dL 3:38 PM [facility] BUN/CREAT RATIO 13 10 - 20 08/19/2022 [facility] 3:38 PM [facility] eGFR >90 >90 08/19/2022 [place] mL/min/1.7 3:38 PM [facility] 3m2 LABORATORY Comment: As of 2021, eGFR is calcu lated by the CKD-EPI creatinine equation without race adjustment. eGFR can be inf luenced by muscle mass, exercise, and diet. The reported eGFR is an estimation only and is only applicable if the renal function is stable. Specimen Anatomical Collection Method / Collection Time Recei phillip Time (Source) Location / Volume Laterality Blood BLOOD SPECIMEN / Venipuncture / 08/19/2022 3:17 2021 3:20 Unknown Unknown PM [facility] SHAREPOINT DESIGNER DEVELOPER Valdez Fernandes MD CHEMISTRY Performing Organization Address City/State/ZIP Code Phon e Number [facility] [address] [place] [address] (ABNORMAL) TSH WITH REFLEX (07/14/2022 1:16 PM CDT) P athologist Signature TSH 124.23 (H) 0.35 - 07/15/2022 [place] 4.94 11:31 AM T [facility] CENTER uIU/mL LABORATORY Specimen Anatomical Collection Method Collection Time Receive d Time (Source) Location / / Volume Laterality Blood BLOOD SPECIMEN / 07/14/2022 1:16 PM 07/15 Unknown CDT 10:00 AM CDT [facility] LABORATORY - 11:31 AM CDT In Adults, TSH values between 5.00 and 10.00 uIU/ml do not necessarily indicate the presence of Hyp othyroidism. Correlation with clinical findings such as presence of goiter and/or Thyroperoxidase (TPO) Antibody ma y be helpful. For more information please refer to JUN 20 ; 291: [id number]. Yesenia East NP CHEMISTRY Performing Organization Address City/[facility]/ZIP Code Phon e Number [facility] [address] [place] [address] (ABNORMAL) T4,FREE (07/14/2022 1:16 PM CDT) athologist Signature T4,FREE 0.69 (L) 0.70 - 1.80 07/16/2022 [facility] ng/dL 12:01 PM CDT LABORATORY-[facility] Specimen Anatomical Collection Method Collection Time Receive d Time (Source) Location / / Volume Laterality Blood BLOOD SPECIMEN / 07/14/2022 1:16 PM 07/15 Unknown CDT 10:00 AM CDT Yesenia East NP CHEMISTRY Performing Organization Address City/State/ZIP Code Phon e Number [facility] [address] [place] [address] LABORATORY-CENTRAL 2000 LABORATORY from Last 3 Months Insurance Payer Benefit Plan / Subscriber ID Effective Dates Phone Addre ss Type Group [place]ICA[place] [id number] 2014-Present [address] [address] Dept [place] [address] [phone] [address] (Home) [address] [address] [id number] [place] Personal/Family Self 1975 [phone] [address] (Home) [address] [place] [id number] [employer] Contract Other 10/11/1968 [phone] [address] CONTRACT,[employer] 1 ([place]) [place] [id number] [facility] Other 10/11/2000 [phone] ATTN ALVIN 4 (Home) [address] [address] [employer] Other 10/11/1969 [phone] [address] Contract,[employer] [facility] (Work) ARIELLE MIL[place] rs [id number] Advance Directives Latest Code Status on File Code Status Date Activated Date Inactivated Comments Full Code 04/09/2014 12:31 AM 04/09/2014 11:04 AM Care Teams Utility Operator Relationship Specialty Start Date End Date Madhuri Aquino, RN, CUPOLA TAPPER PCP - General Nurse Practitioner 03/19/15 [address] [place]EL[place] PLUMMER [id number]
[2022-08-21] MEDS: 0.9 % SODIUM CHLORIDE 1000 ml 1,000 ML 500 ML IV (08:35)
[2022-08-21] MEDS: KETOROLAC 15 MG/ML inj IVP (08:36)
[2022-08-21] MEDS: MORPHINE 2 MG/ML inj IVP (08:37)
[2022-08-21 08:40] LABS: Lactate* 0.8 mmol/L (0.5-1.9)
[2022-08-21 08:43] LABS: Appearance Urine Clear (Clear); Bilirubin Urine 1+ (Negative); Blood Urine 1+ (Negative); Color Urine Yellow (Yellow); Glucose Urine Negative (Negative); Ketones Urine 4+ (Negative); Leukocyte Esterase Urine Negative (Negative); Nitrite Urine Negative (Negative); Protein Urine Trace (Negative); Urobilinogen Urine 0.2 (0.2-1.0)
[2022-08-21 08:51] LABS: Basophils Percent Auto 0.1 % (0.0-3.0); Hemoglobin* 11.7 gm/dL (12.0-16.0); Immature Granulocytes Pct Auto 0.6 %; Lymphocytes Percent Auto 5.4 % (20-44); Mean Corpuscular HGB Conc 33 gm/dL (32-36); Mean Corpuscular Hemoglobin 29 pg (26-34); Mean Corpuscular Volume 87 fL (80-100); Monocytes Percent Auto 3.2 % (0.0-11.0); Neutrophils Percent Auto 89.7 % (42.0-72.0); Platelet Count* 240 K/uL (140-440); Red Blood Count 4.03 m/uL (4.00-5.20); White Blood Count* 13.68 K/uL (4.50-11.00)
[2022-08-21 08:56] LABS: Slide Review Reflex No
[2022-08-21 08:58] LABS: RBC Urine 0-2 (0-2); Squamous Epithelial Cell Urine Few (None-Few); WBC Urine 0-2 (0-5)
[2022-08-21 08:59] LABS: Albumin* 3.6 g/dL (3.3-5.0); Chloride* 97 mmol/L (96-114)
[2022-08-21 09:00] LABS: Potassium* 3.3 mmol/L (3.6-5.1); Sodium* 132 mmol/L (135-149)
[2022-08-21 09:02] LABS: Bilirubin Total* 0.8 mg/dL (0.1-1.5); Creatinine* 0.6 mg/dL (0.5-1.5); Est. Creatinine Clearance* 88.41; Estimated Glomerular Filt Rate 112 ml/min
[2022-08-21 09:03] LABS: Alanine Aminotransferase* 14 U/L (4-35); Alkaline Phosphatase* 104 U/L (40-150); Aspartate Amino Transferase* 19 U/L (12-35); Blood Urea Nitrogen* 7 mg/dL (5-24); Calcium* 8.4 mg/dL (8.4-10.6); Carbon Dioxide* 28 mmol/L (20-32); Glucose* 91 mg/dL (60-115); Total Protein* 6.8 g/dL (6.0-8.3)
[2022-08-21 09:06] LABS: C Reactive Protein* 8.9 mg/dL (0.5-1.0)
[2022-08-21 09:13] LABS: SARS PCR* Negative SARS-CoV-2 (Negative)
--- NOTE | 2022-08-21 09:14 | CRLHL7_ITS ---
For Patients: As a result of the Century Cures Act, medical imaging exams and procedure reports are released immediately into your electronic medical record. You may view this report before your referring provider. If you have questions, please contact your health care provider. INDICATION: INC ABD PAIN, N/V, WBC ELEVATED TECHNIQUE: CT abdomen and pelvis with 68CC ISOVUE-370 IV contrast. COMPARISON: None. FINDINGS: The liver is normal in size, shape and attenuation. Moderate distension of the gallbladder without evidence of wall thickening or pericholecystic fluid. No biliary duct dilation. The spleen, adrenal glands and pancreas are within normal limits. The kidneys are unremarkable. No evidence of bowel obstruction. There are several abnormally dilated loops of small bowel throughout the abdomen most notably within the right greater than left lower abdomen. There is prominent surrounding inflammation as well as fluid predominantly contained within the mesentery. Some of which may demonstrate early organization suspicious for abscess, for example on series 4, image 37 measuring 1.1 x 2.2 x 2.4 cm). No evidence of free air or pneumatosis. The uterus appears unremarkable. Low-density lesion right adnexa likely a follicular cyst measuring 1.7 cm. Mild patchy bibasilar atelectasis or consolidation. IMPRESSION: There are several abnormally dilated loops of small bowel throughout the abdomen most notably within the right greater than left lower abdomen. There is prominent surrounding inflammation as well as a small amount of fluid predominantly contained within the mesentery. Some of the fluid may demonstrate early organization suspicious for abscess, for example on series 4, image 37 measuring 1.1 x 2.2 x 2.4 cm. Overall, findings are concerning for severe enteritis predominantly involving the distal small bowel (ileitis). Of note, the appendix is not definitely visualized and acute appendicitis (perhaps ruptured) can`t entirely be excluded. Mild patchy bibasilar atelectasis or consolidation. Please note that all CT scans at this facility use dose modulation, iterative reconstruction, and/or weight-based dosing when appropriate to reduce radiation dose to as low as reasonably achievable. Dictated by Bautista Vitale MD @ 08/21/2022 11:03:31 AM (Electronically Signed)
[2022-08-21] MEDS: 0.9 % SODIUM CH + KCL 20 mEq/L 1,000 ML 125 ML IV (10:50)
[2022-08-21] MEDS: metroNIDAZOLE 500 MG/100 ML PIGGYBACK IVPB ×2 (13:18→20:49)
[2022-08-21] MEDS: CIPROFLOXACIN 400 MG/200 ML inj IVPB (14:34)
--- NOTE | 2022-08-21 14:40 | ED.NURSE ---
report given, pt transferring to [facility] 4 via wheelchair with belongings.
--- NOTE | 2022-08-21 15:05 | P.GSCN_ITS ---
History of Present Illness Consult details Date Seen: 08/21/22 Consult date: 08/21/22 Narrative: 47-year-old female presented to emergency room with abdominal pain and I was asked by Dr. Jimenez to see her in consultation. Patient states that her pain started on Wednesday. She was seen at the outside hospital and was found to have normal WBC. An abdominal CT was obtained at the outside hospital that showed prominent minimally dilated terminal ileum with no significant inflammation. This was thought to be due to enteritis. Patient was discharged home on antibiotics, however her pain was not getting better. Because her pain was getting significantly worse, patient presented to our emergency room today. Patient describes the pain as severe. It started in bilateral lower quadrants and then migrated to the entire abdomen. The pain is worse with walking or moving. Patient had a vomiting on Wednesday and Wednesday but no nausea vomiting since then. Patient has been passing gas but her last bowel movement was on Wednesday. She denies personal or family history of Crohn's disease. She has never had a colonoscopy. Patient denies any sick contacts. In the emergency room she was found to have an elevated WBC of 13.6. An abdominal CT was repeated that showed dilated loops of distal small bowel with significant inflammation adjacent to the dilated loops. There was also a small fluid collection measuring up to 2 cm that was located in the small bowel mesentery. The appendix was not seen (patient is s/p appendectomy). Review of Systems Narrative: General: no fevers HENT: no problems swallowing CV: no shortness of breath Resp: no cough GI: See above : no dysuria, no increased urinary frequency, no hematuria Skin: no new rashes Musculoskeletal: no back pain Neuro: no muscle weakness Psyche: no depression, no anxiety [facility] Surgical History (Updated 08/21/22 @ 15:10 by Dinesh Rinaldi MD) S/P appendectomy Social History Smoking Status: Never smoker How often do you have a drink containing alcohol: never AUDIT-C Alcohol total score: 0 Non-prescribed substance use: denies use Meds Home Medications and Allergies Home Medications Medication Instructions Recorded Confirmed Type cephalexin 500 mg capsule 500 mg PO BID 08/21/22 08/21/22 History cholecalciferol (vitamin D3) 50 50 mcg PO DAILY 08/21/22 08/21/22 History mcg (2,000 unit) capsule levothyroxine 200 mcg tablet 200 mcg PO DAILY 08/21/22 08/21/22 History Allergies Allergy/AdvReac Type Severity Reaction Status Date / Time No Known Drug Allergies Allergy Verified 08/21/22 07:16 Exam Narrative: Exam Narrative: General appearance: Alert, cooperative, and in no distress Pulmonary: Chest symmetric, lungs clear bilaterally Cardiovascular Heart: Regular rate and rhythm, S1, S2, no murmurs/rubs/gallops Gastrointestinal Abdominal: soft, not distended, diffusely tender to palpation, tender to percussion in bilateral lower quadrants but not epigastrium. Skin: Normal skin color, texture, and turgor. No rashes or lesions. Psychiatric: Alert, cooperative, normal affect. Const: Vital Signs, click to edit/add: Vital Signs - 24 hr 08/21/22 07:09 08/21/22 08:43 08/21/22 09:30 Temperature 99.5 F Pulse Rate [Pulse Oximeter] 92 90 87 Respiratory Rate 20 Blood Pressure [Le ft Upper Arm] 101/48 L 121/61 108/51 L Pulse Oximetry 96 96 94 Oxygen Delivery Me thod Room Air Room Air Room Air 08/21/22 10:00 08/21/22 11:00 08/21/22 11:30 Temperature Pulse Rate [Pulse Oximeter] 87 85 87 Respiratory Rate Blood Pressure [Le ft Upper Arm] 115/67 119/62 116/56 L Pulse Oximetry 94 93 93 [facility] 08/21/22 13:30 08/21/22 12:00 08/21/22 13:00 Temperature Pulse Rate [Pulse Oximeter] 99 88 Respiratory Rate Blood Pressure [Le ft Upper Arm] 128/57 L 112/60 124/57 L Pulse Oximetry 94 95 95 Oxygen Delivery Pr thod Room Air Room Air Room Air 08/21/22 14:30 Temperature Pulse Rate [Pulse Oximeter] 92 Respiratory Rate Blood Pressure [Le ft Upper Arm] 108/52 L Pulse Oximetry 95 Oxygen Delivery Pr thod Room Air Results Labs Labs: Abnormal lab results 08/21/22 08/21/22 08/21/22 Range/Units 08:18 08:28 08:28 WBC 13.68 H (4.50-11.00) K/uL Hgb 11.7 L (12.0-16.0) gm/dL Neut % (Auto) 89.7 H (42.0-72.0) % Lymph % (Auto) 5.4 L (20-44) % Neut # (Auto) 12.30 H (1.7-7.0) K/uL Lymph # (Auto) 0.70 L (0.90-2.90) K/uL Sodium 132 L (135-149) mmol/L Potassium 3.3 L (3.6-5.1) mmol/L C-Reactive Protein 8.9 H (0.5-1.0) mg/dL Urine Protein Trace A (Negative) Urine Ketones 4+ A (Negative) Urine Blood 1+ A (Negative) Urine Bilirubin 1+ A (Negative) Diabetes panel 08/21/22 Range/Units 08:28 Sodium 132 L (135-149) mmol/L Potassium 3.3 L (3.6-5.1) mmol/L Chloride 97 (96-114) mmol/L Carbon Dioxide 28 (20-32) mmol/L BUN 7 (5-24) mg/dL Creatinine 0.6 (0.5-1.5) mg/dL Glucose 91 (60-115) mg/dL Calcium 8.4 (8.4-10.6) mg/dL AST 19 (12-35) U/L ALT 14 (4-35) U/L Alkaline Phosphatase 104 (40-150) U/L Total Protein 6.8 (6.0-8.3) g/dL Albumin 3.6 (3.3-5.0) g/dL Calcium panel 08/21/22 Range/Units 08:28 Calcium 8.4 (8.4-10.6) mg/dL Albumin 3.6 (3.3-5.0) g/dL Pituitary panel 08/21/22 Range/Units 08:28 Sodium 132 L (135-149) mmol/L Potassium 3.3 L (3.6-5.1) mmol/L Chloride 97 (96-114) mmol/L Carbon Dioxide 28 (20-32) mmol/L BUN 7 (5-24) mg/dL Creatinine 0.6 (0.5-1.5) mg/dL Glucose 91 (60-115) mg/dL Calcium 8.4 (8.4-10.6) mg/dL Adrenal panel 08/21/22 Range/Units 08:28 Sodium 132 L (135-149) mmol/L Potassium 3.3 L (3.6-5.1) mmol/L Chloride 97 (96-114) mmol/L Carbon Dioxide 28 (20-32) mmol/L BUN 7 (5-24) mg/dL Creatinine 0.6 (0.5-1.5) mg/dL Glucose 91 (60-115) mg/dL Calcium 8.4 (8.4-10.6) mg/dL Total Bilirubin 0.8 (0.1-1.5) mg/dL AST 19 (12-35) U/L ALT 14 (4-35) U/L Alkaline Phosphatase 104 (40-150) U/L Total Protein 6.8 (6.0-8.3) g/dL Albumin 3.6 (3.3-5.0) g/dL All other labs normal. Imaging CT scan - pelvis: report reviewed and image reviewed Assessment and Plan Assessment and plan (1) Abdominal pain: Status: Acute Plan 47-year-old female with history of appendectomy presents with abdominal pain of unknown etiology. I reviewed patient's [facility] scan from [facility] days ago and compared to the CT scan from today. Patient's CT scan from today has more inflammation near the terminal ileum. There is no free air. There is no evidence of Meckel's diverticulum. Patient is s/p open appendectomy. The differential includes inflammatory bowel disease versus enteritis of infectious etiology. Patient does not have any family history of Crohn's disease. I do not think this patient needs emergency surgery. I would recommend to continue antibiotics and patient should remain NPO.
[2022-08-21 17:24] LABS: Free T4 Free Thyroxine* 1.81 ng/dL (0.70-1.85)
[2022-08-21 17:37] LABS: Thyroid Stimulating Hormone* 0.345 uIU/mL (0.270-4.20)
--- NOTE | 2022-08-21 18:01 | P.IMHP_ITS ---
Hospitalist- H&P: HPI History of Present Illness Date Seen: 08/21/22 Chief complaint: abdominal pain Narrative: Alva Britton is a 47 year old female admitted to the hospital for abdominal pain. Pain began 2 days ago on Wednesday. She describes generalized abdominal pain. She did have 1 emesis and 1 bowel movement on Wednesday these were normal without blood or diarrhea. She has had a very poor appetite and has had only water and some clear liquids since Wednesday. She was seen in the [place] [facility] where she was evaluated including an abdominal CT scan showed inflammatory changes involving distal loops of small bowel with questionable mild perienteric inflammatory changes representing infectious or inflammatory enteritis. Fatty liver was noted as well as mild chronic gastritis changes. She was discharged to home with pain medication, antibiotic for UTI Keflex and antiemetics. She is not having urinary symptoms. She now presents here with ongoing pain which she says is about the same as it was yesterday. She is not aware of any fever. No previous history of abdominal problems. She does have a previous history of appendicitis and appendectomy. No other abdominal surgeries. She has had no recent travel history. No known exposures. No history of chronic gastrointestinal disease. She reports heavier than normal menstrual period this month. She did have a negative test yesterday. History of H pylori gastritis Review of Systems Narrative: Prior to Wednesday she reports she was generally feeling well. No other recent illness. In the last few months she has been treated for hypothyroidism. She had a TSH of 124 and a free T4 of 0.69 on July 14. She has been on levothyroxine 200 mcg daily since that time. Last menstrual period ended 5 days ago [facility] Medical History Gestational diabetes Hypothyroidism Surgical History S/P appendectomy Social History (Updated 08/21/22 @ 18:11 by Valdez Douglas MD) Narrative: She lives alone in [place]. She has 3 children who are grown. She does not work outside of the home. She does not smoke. She does not drink alcohol. Family history: She reports no significant medical problems in her family in her immediate family are healthy. Smoking Status: Never smoker Second hand tobacco smoke exposure: No How often do you have a drink containing alcohol: never AUDIT-C Alcohol total score: 0 Non-prescribed substance use: denies use Caffeine: Yes service: No Meds Home Medications and Allergies Home Medications Medication Instructions Recorded Confirmed Type cephalexin 500 mg capsule 500 mg PO BID 08/21/22 08/21/22 History cholecalciferol (vitamin D3) 50 50 mcg PO DAILY 08/21/22 08/21/22 History mcg (2,000 unit) capsule levothyroxine 200 mcg tablet 200 mcg PO DAILY 08/21/22 08/21/22 History Allergies Allergy/AdvReac Type Severity Reaction Status Date / Time No Known Drug Allergies Allergy Verified 08/21/22 07:16 Exam Narrative: Exam Narrative: She is alert and appears in no distress. Eyes are normal. Sclerae nonicteric. Oropharynx is normal. Neck is supple without mass or adenopathy. Respirations are clear to auscultation. Cardiovascular: S1, S2, regular rate and rhythm. No murmur gallop or rub. Abdomen: Bowel sounds present. She has diffuse moderate tenderness to palpation. External genitalia normal. Extremities with intact pulses and sensation. No edema. She moves all 4 extremities well. No rash. Const: Vital Signs, click to edit/add: Vital Signs - 24 hr 08/21/22 07:09 08/21/22 08:43 08/21/22 09:30 Temperature 99.5 F Pulse Rate [Left P ulse Oximeter] Pulse Rate [Pulse Oximeter] 92 90 87 Respiratory Rate 20 Blood Pressure [Le ft Arm] Blood Pressure [Le ft Upper Arm] 101/48 L 121/61 108/51 L Pulse Oximetry 96 96 94 [facility] Room Air Room Air 08/21/22 10:00 08/21/22 11:00 08/21/22 11:30 Temperature Pulse Rate [Left P ulse Oximeter] Pulse Rate [Pulse Oximeter] 87 85 87 Respiratory Rate Blood Pressure [Le ft Arm] Blood Pressure [Le ft Upper Arm] 115/67 119/62 116/56 L Pulse Oximetry 94 93 93 [facility] Room Air Room Air 08/21/22 13:30 08/21/22 12:00 08/21/22 13:00 Temperature Pulse Rate [Left P ulse Oximeter] Pulse Rate [Pulse Oximeter] 99 88 Respiratory Rate Blood Pressure [Le ft Arm] Blood Pressure [Le ft Upper Arm] 128/57 L 112/60 124/57 L Pulse Oximetry 94 95 95 Oxygen Delivery Me thod Room Air Room Air Room Air 08/21/22 14:30 08/21/22 16:12 08/21/22 16:13 Temperature 98.9 F 98.9 F Pulse Rate [Left P ulse Oximeter] 98 98 Pulse Rate [Pulse Oximeter] 92 Respiratory Rate 18 18 Blood Pressure [Le ft Arm] 101/51 L 101/51 L Blood Pressure [Le ft Upper Arm] 108/52 L Pulse Oximetry 95 94 94 Oxygen Delivery Me thod Room Air Room Air Room Air Hospitalist - H&P: Result Labs Labs: Short CBC 08/21/22 Range/Units 08:28 WBC 13.68 H (4.50-11.00) K/uL Hgb 11.7 L (12.0-16.0) gm/dL Hct 35.0 (33.0-51.0) % Plt Count 240 (140-440) K/uL BMP 08/21/22 08:28 Sodium 132 L Potassium 3.3 L Chloride 97 Carbon Dioxide 28 BUN 7 Creatinine 0.6 Glucose 91 Calcium 8.4 Liver Function 08/21/22 Range/Units 08:28 Total Bilirubin 0.8 (0.1-1.5) mg/dL AST 19 (12-35) U/L ALT 14 (4-35) U/L Alkaline Phosphatase 104 (40-150) U/L Albumin 3.6 (3.3-5.0) g/dL Urine 08/21/22 Range/Units 08:18 Urine Color Yellow (Yellow) Urine Appearance Clear (Clear) Urine pH 6.0 (5.0-8.5) Ur Specific [place] 1.020 (1.000-1.030) Urine Protein Trace A (Negative) Urine Glucose (UA) Negative (Negative) Assessment and Plan Assessment and plan (1) Enteritis: Problem comment: Probable cause of abdominal pain. She appears more tender than is typical for enteritis. Will need close monitoring. Consult surgery. Status: Acute (2) Abdominal pain: Problem comment: Enteritis is preliminary diagnosis based on CT but need to consider a wide range of other possibilities if patient is not clinically improving. Plan at this time would be antibiotics with metronidazole and Cipro. Continue to reassess for other possible explanations for acute generalized abdominal pain with CT findings noted above. Status: Acute (3) Hypothyroidism: Problem comment: Appears that current levothyroxine dosing is close to the proper dose with appropriately therapeutic TSH and free T4. These tests suggest thyroid replacement is borderline high normal. Status: Acute Plan Continue in hospital for evaluation management of acute abdominal pain with NPO, bowel rest, IV fluids, IV pain medications, IV antiemetics, IV antibiotics. Total time spent today is 70 minutes, 40 minutes in coordination of care and discussing with patient and other providers ongoing evaluation management of abdominal pain and enteritis
--- NOTE | 2022-08-21 18:03 | PC.NURSE ---
Shift Summary: Patient pleasant and cooperative. Used [employer] plastics nurse per patients request, does understand and communicate in faroese well, was answering staff before plastics nurse had a chance to interpret. Has not been up to bathroom yet, denies need at this time. States shes having some pain in abdomen, unable to rate, refused medication x2. O2 sats >90% on RA. Alert and oriented, using call light appropriately. Compliant with NPO diet.
[2022-08-21] MEDS: MORPHINE 4 MG/ML INJ IVP ×2 (19:01→23:23)
[2022-08-21] MEDS: 5 % DEXTROSE/0.9% SOD CHLORIDE 1,000 ML 125 ML IV (19:02)
--- NOTE | 2022-08-21 22:16 | PC.NURSE ---
Shift [id number]- Patient rates pain at 7/10- morphine administered with stated relief. She appears to nap tonight. She is up to bathroom, urine is cb.
[2022-08-21] MEDS: ONDANSETRON 2 MG/ML inj 4 MG IVP (23:23)
[2022-08-22] MEDS: CIPROFLOXACIN 400 MG/200 ML inj IVPB ×2 (01:57→14:44)
[2022-08-22 04:45] VITALS: BP 106/54; PULSE 88; RESP 14; TEMP 36.6; O2SAT 95
[2022-08-22] MEDS: metroNIDAZOLE 500 MG/100 ML PIGGYBACK IVPB ×3 (04:49→20:13)
[2022-08-22] MEDS: 5 % DEXTROSE/0.9% SOD CHLORIDE 1,000 ML 125 ML IV ×2 (04:49→13:04)
--- NOTE | 2022-08-22 05:53 | PC.NURSE ---
SHIFT NOTE 23-07: Pt pleasant and cooperative, A&O. Afebrile, oxygen saturations >90% on room air. PRN Morphine given for pain with pt reporting relief. PRN Zofran given x1 for nausea, no emesis, pt reports relief. Denies SOB and CP. Up SBA, tolerates well.
[2022-08-22] MEDS: LEVOTHYROXINE 100 MCG TABLET 200 MCG PO (06:19)
[2022-08-22 06:21] LABS: Lactate* 0.5 mmol/L (0.5-1.9)
[2022-08-22 06:32] LABS: Basophils Absolute Auto 0.01 K/uL (0.00-0.30); Basophils Percent Auto 0.1 % (0.0-3.0); Eosinophils Absolute Auto 0.16 K/uL (0.00-0.50); Eosinophils Percent Auto 1.8 % (0.0-7.0); Hemoglobin* 9.7 gm/dL (12.0-16.0); Immature Granulocytes Abs Auto 0.05 K/uL (0.00-0.30); Immature Granulocytes Pct Auto 0.6 %; Lymphocytes Percent Auto 6.4 % (20-44); Mean Corpuscular HGB Conc 33 gm/dL (32-36); Mean Corpuscular Hemoglobin 29 pg (26-34); Mean Corpuscular Volume 87 fL (80-100); Monocytes Percent Auto 5.9 % (0.0-11.0); Neutrophils Percent Auto 85.2 % (42.0-72.0); Platelet Count* 226 K/uL (140-440); RDW Coefficient of Variation % 12.9 % (11.5-15.5); Red Blood Count 3.34 m/uL (4.00-5.20); White Blood Count* 8.78 K/uL (4.50-11.00)
[2022-08-22 06:35] LABS: Slide Review Reflex No
[2022-08-22 06:43] LABS: Chloride* 108 mmol/L (96-114); Sodium* 136 mmol/L (135-149)
[2022-08-22 06:46] LABS: Carbon Dioxide* 24 mmol/L (20-32); Creatinine* 0.4 mg/dL (0.5-1.5); Est. Creatinine Clearance* 132.61; Estimated Glomerular Filt Rate 124 ml/min
[2022-08-22 06:47] LABS: Blood Urea Nitrogen* 4 mg/dL (5-24); Calcium* 7.4 mg/dL (8.4-10.6); Glucose* 124 mg/dL (60-115)
[2022-08-22 07:15] LABS: C Reactive Protein* 19.8 mg/dL (0.5-1.0)
--- NOTE | 2022-08-22 08:29 | PM.GSPN ---
Subjective Subjective Date Seen: 08/22/22 Interval history: Patient states that the pain is slightly better than yesterday but still complains of pain. She denies vomiting and had nausea x1. Patient ambulated only in her room. She continues to pass gas. Exam Narrative: Exam Narrative: Abdomen is soft, not distended, diffusely tender to palpation. Patient states that the tenderness is slightly better in the yesterday. Const: Vital Signs, click to edit/add: Vital Signs - 24 hr 08/21/22 08:43 08/21/22 09:30 08/21/22 10:00 Temperature Pulse Rate [Left P ulse Oximeter] Pulse Rate [Pulse Oximeter] 90 87 87 Respiratory Rate 20 Blood Pressure [Le ft Arm] Blood Pressure [Le ft Upper Arm] 121/61 108/51 L 115/67 Pulse Oximetry 96 94 94 Oxygen Delivery Me thod Room Air Room Air Room Air 08/21/22 11:00 08/21/22 11:30 08/21/22 13:30 Temperature Pulse Rate [Left P ulse Oximeter] Pulse Rate [Pulse Oximeter] 85 87 99 Respiratory Rate Blood Pressure [Le ft Arm] Blood Pressure [Le ft Upper Arm] 119/62 116/56 L 128/57 L Pulse Oximetry 93 93 94 Oxygen Delivery Me thod Room Air Room Air Room Air 08/21/22 12:00 08/21/22 13:00 08/21/22 14:30 Temperature Pulse Rate [Left P ulse Oximeter] Pulse Rate [Pulse Oximeter] 88 92 Respiratory Rate Blood Pressure [Le ft Arm] Blood Pressure [Le ft Upper Arm] 112/60 124/57 L 108/52 L Pulse Oximetry 95 95 95 Oxygen Delivery Me thod Room Air Room Air Room Air 08/21/22 16:12 08/21/22 16:13 08/21/22 19:01 Temperature 98.9 F 98.9 F 98.8 F Pulse Rate [Left P ulse Oximeter] 98 98 102 H Pulse Rate [Pulse Oximeter] Respiratory Rate 18 18 18 Blood Pressure [Le ft Arm] 101/51 L 101/51 L 100/47 L Blood Pressure [Le ft Upper Arm] Pulse Oximetry 94 94 93 Oxygen Delivery Me thod Room Air Room Air Room Air 08/21/22 23:00 08/21/22 23:00 08/22/22 04:45 Temperature 98.4 F 98 F Pulse Rate [Left P ulse Oximeter] 104 H 104 H 88 Pulse Rate [Pulse Oximeter] Respiratory Rate 16 16 14 Blood Pressure [Le ft Arm] 105/47 L 106/54 L Blood Pressure [Le ft Upper Arm] Pulse Oximetry 95 95 Oxygen Delivery Me thod Room Air Room Air Progress Note: A&P Assessment and plan (1) Abdominal pain: Status: Acute Assessment and Plan: 47-year-old female presents with abdominal pain of unknown etiology. Patient states the pain is slightly better than yesterday. Her abdominal exam is not significantly changed. Her WBC is down but her CRP continues to be elevated and went up to 19 today. Her hemoglobin is down to 9.7 from 11.7. There are no signs of active bleeding. Patient most likely presented hemoconcentrated and this is dilutional anemia after IV fluids. I would recommend continuing IV fluids with NPO. Will continue monitoring for improvement in her abdominal pain. Continue antibiotics for now. I discussed with the patient to ambulate in the hallway.
[2022-08-22] MEDS: POTASSIUM CHLORIDE 10 MEQ, LIDOCAINE 1 % 1 ML in 0.9 % SODIUM CHLORIDE 100 ml 100 ML 106 MEQ IVPB ×2 (08:52→10:24)
[2022-08-22] MEDS: MORPHINE 4 MG/ML INJ IVP ×3 (08:52→20:17)
[2022-08-22 09:00] VITALS: BP 101/53; PULSE 95; RESP 16; TEMP 36.9; O2SAT 95
[2022-08-22 11:27] VITALS: BP 113/57; PULSE 83; RESP 18; TEMP 36.7; O2SAT 95
--- NOTE | 2022-08-22 14:32 | PM.IMPN1 ---
Progress Note: A&P Assessment and plan (1) Abdominal pain: Status: Acute Assessment and Plan: Etiology unclear, suspect enteritis. Appreciate Dr. Rinaldi is recommendations. Continue IV fluids, IV antibiotics (cipro, metronidazole), NPO. I will add oral pain medication with continuous pulse oximetry monitoring since morphine was wearing off too quickly. (2) Enteritis: Problem details: Probable cause of abdominal pain. She appears more tender than is typical for enteritis. Status: Acute (3) Hypothyroidism: Problem details: Appears that current levothyroxine dosing is close to the proper dose with appropriately therapeutic TSH and free T4. These tests suggest thyroid replacement is borderline high normal. Status: Acute (4) Anemia: Problem details: Normocytic. Status: Acute Assessment and Plan: I suspect this was likely chronic and appears acute due to hemodilution. Recheck hemoglobin in the morning. I will check iron studies, B12, and folate. (5) Hypokalemia: Status: Acute Assessment and Plan: Replace orally. Check magnesium. Plan VTE prophylaxis Daniel's and SCDs. Will hold off on Lovenox for now due to drop in hemoglobin. Subjective Time Seen by Provider: 10:35 Date Seen: 08/22/22 Interval history: I spoke with Alva via asbestos coverer on an iPad. She notes the IV pain medicine wears off early, before she is due for the next dose. She is still fairly painful at times. Pain is in a [place] around her umbilicus. She feels bloated. She denies nausea or vomiting. She is having flatus. NPO IVF: D5NS @ 125 cc/hr Cipro 400 mg IV q12h metronidazole 500mg q8h Exam Narrative: Exam Narrative: General: Appears uncomfortable, shifting in bed, grimacing. Awake, alert, oriented. No pallor. No jaundice. Oropharynx: Clear. Mucous membranes moist. Cardiovascular: Regular rate and rhythm. No murmurs, gallops, or rubs. Respiratory: Clear to auscultation bilaterally. No wheezes or crackles. Abdomen: Bowel sounds hypoactive. Soft, mildly distended, mildly diffusely tender. No rebound tenderness or guarding. Extremities: No pedal edema. Const: Vital Signs, click to edit/add: Vital Signs - 24 hr 08/21/22 16:12 08/21/22 16:13 08/21/22 19:01 Temperature 98.9 F 98.9 F 98.8 F Pulse Rate [Left P ulse Oximeter] 98 98 102 H Respiratory Rate 18 18 18 Blood Pressure [Le ft Arm] 101/51 L 101/51 L 100/47 L Pulse Oximetry 94 94 93 Oxygen Delivery Me thod Room Air Room Air Room Air 08/21/22 23:00 08/21/22 23:00 08/22/22 04:45 Temperature 98.4 F 98 F Pulse Rate [Left P ulse Oximeter] 104 H 104 H 88 Respiratory Rate 16 16 14 Blood Pressure [Le ft Arm] 105/47 L 106/54 L Pulse Oximetry 95 95 Oxygen Delivery Me thod Room Air Room Air 08/22/22 09:00 08/22/22 11:27 Temperature 98.5 F 98.1 F Pulse Rate [Left P ulse Oximeter] 95 83 Respiratory Rate 16 18 Blood Pressure [Le ft Arm] 101/53 L 113/57 L Pulse Oximetry 95 95 Oxygen Delivery Me thod Room Air Room Air Documenting provider has reviewed patient's vital signs: yes Labs Labs: Laboratory Results - last 24 hr 08/21/22 08/22/22 08/22/22 08:28 06:06 06:06 WBC 8.78 RBC 3.34 L Hgb 9.7 L Hct 29.0 L MCV 87 MCH 29 MCHC 33 RDW Coeff of Vivi 12.9 Plt Count 226 Neut % (Auto) 85.2 H Lymph % (Auto) 6.4 L [place] % (Auto) 5.9 Eos % (Auto) 1.8 Baso % (Auto) 0.1 Neut # (Auto) 7.50 H Lymph # (Auto) 0.60 L [place] # (Auto) 0.50 Eos # (Auto) 0.16 Baso # (Auto) 0.01 Abs Immat Gran (auto) 0.05 Imm/Tot Granulo (auto) 0.6 Sodium 136 Potassium 3.0 L Chloride 108 Carbon Dioxide 24 BUN 4 L Creatinine 0.4 L Estimated Creat Clear 132.61 Estimated GFR 124 Glucose 124 H Lactate Calcium 7.4 L Magnesium 2.0 C-Reactive Protein 19.8 H TSH 0.345 Free T4 1.81 08/22/22 06:06 WBC RBC Hgb Hct MCV MCH MCHC RDW Coeff of Vivi Plt Count Neut % (Auto) Lymph % (Auto) [place] % (Auto) Eos % (Auto) Baso % (Auto) Neut # (Auto) Lymph # (Auto) [place] # (Auto) Eos # (Auto) Baso # (Auto) Abs Immat Gran (auto) Imm/Tot Granulo (auto) Sodium Potassium Chloride Carbon Dioxide BUN Creatinine Estimated Creat Clear Estimated GFR Glucose Lactate 0.5 Calcium Magnesium C-Reactive Protein TSH Free T4
[2022-08-22 15:59] VITALS: BP 92/49; PULSE 87; RESP 18; TEMP 36.9; O2SAT 96
[2022-08-22 16:41] LABS: Basophils Absolute Auto 0.01 K/uL (0.00-0.30); Basophils Percent Auto 0.1 % (0.0-3.0); Eosinophils Percent Auto 2.9 % (0.0-7.0); Hemoglobin* 9.4 gm/dL (12.0-16.0); Immature Granulocytes Abs Auto 0.08 K/uL (0.00-0.30); Immature Granulocytes Pct Auto 1.2 %; Lymphocytes Percent Auto 10.3 % (20-44); Mean Corpuscular HGB Conc 34 gm/dL (32-36); Mean Corpuscular Hemoglobin 29 pg (26-34); Mean Corpuscular Volume 87 fL (80-100); Monocytes Percent Auto 7.1 % (0.0-11.0); Neutrophils Percent Auto 78.4 % (42.0-72.0); Platelet Count* 211 K/uL (140-440); RDW Coefficient of Variation % 13.1 % (11.5-15.5); Red Blood Count 3.21 m/uL (4.00-5.20); White Blood Count* 6.91 K/uL (4.50-11.00)
[2022-08-22 16:47] LABS: Slide Review Reflex No
[2022-08-22] MEDS: ONDANSETRON 2 MG/ML inj 4 MG IVP ×2 (17:43→21:15)
[2022-08-22] MEDS: 5 % DEXTROSE IN LAC RINGER'S 1,000 ML 125 ML IV (17:47)
[2022-08-22] MEDS: PANTOPRAZOLE SODIUM 40 MG INJ IVP (17:51)
--- NOTE | 2022-08-22 18:19 | PC.NURSE ---
Shift Summary: Patient pleasant and cooperative. Up with SBA. IV in right AC infiltrated, new IV placed in left AC by Andreia, sales warehouse driver. Seen this evening by , see orders. Pain well controlled with Morphine 2mg PRN. Continues to be NPO.
[2022-08-22 18:38] LABS: Chloride* 106 mmol/L (96-114); Potassium* 3.2 mmol/L (3.6-5.1); Sodium* 136 mmol/L (135-149)
[2022-08-22 18:41] LABS: Blood Urea Nitrogen* 3 mg/dL (5-24); Carbon Dioxide* 31 mmol/L (20-32); Creatinine* 0.4 mg/dL (0.5-1.5); Est. Creatinine Clearance* 132.61; Estimated Glomerular Filt Rate 124 ml/min; Glucose* 144 mg/dL (60-115)
[2022-08-22 18:42] LABS: Calcium* 7.9 mg/dL (8.4-10.6)
[2022-08-22 19:00] VITALS: BP 103/56; PULSE 88; RESP 16; TEMP 36.9; O2SAT 95
[2022-08-22] MEDS: 5 % DEX/0.9 SOD CHL+KCL 20 mEq 1,000 ML 125 ML IV (22:41)
[2022-08-22 23:00] VITALS: BP 95/50; PULSE 86; RESP 16; TEMP 36.6; O2SAT 96
[2022-08-23] MEDS: CIPROFLOXACIN 400 MG/200 ML inj IVPB ×2 (02:00→14:12)
[2022-08-23 03:00] VITALS: BP 101/48; PULSE 90; RESP 14; TEMP 36.9; O2SAT 95
[2022-08-23] MEDS: ONDANSETRON 2 MG/ML inj 4 MG IVP ×3 (03:00→16:37)
[2022-08-23 04:32] LABS: Ionized Calcium* 1.09 mmol/L (1.11-1.30); Lactate* 0.6 mmol/L (0.5-1.9)
[2022-08-23 04:36] LABS: Basophils Absolute Auto 0.01 K/uL (0.00-0.30); Basophils Percent Auto 0.2 % (0.0-3.0); Eosinophils Absolute Auto 0.21 K/uL (0.00-0.50); Eosinophils Percent Auto 3.5 % (0.0-7.0); Hematocrit 28.8 % (33.0-51.0); Hemoglobin* 9.8 gm/dL (12.0-16.0); Immature Granulocytes Abs Auto 0.15 K/uL (0.00-0.30); Immature Granulocytes Pct Auto 2.5 %; Lymphocytes Percent Auto 10.4 % (20-44); Mean Corpuscular HGB Conc 34 gm/dL (32-36); Mean Corpuscular Hemoglobin 29 pg (26-34); Mean Corpuscular Volume 87 fL (80-100); Monocytes Percent Auto 8.2 % (0.0-11.0); Neutrophils Percent Auto 75.2 % (42.0-72.0); Platelet Count* 233 K/uL (140-440); Red Blood Count 3.33 m/uL (4.00-5.20); White Blood Count* 6.08 K/uL (4.50-11.00)
[2022-08-23 04:42] LABS: Slide Review Reflex No
[2022-08-23 04:48] LABS: Chloride* 108 mmol/L (96-114); Sodium* 137 mmol/L (135-149)
[2022-08-23 04:51] LABS: Creatinine* 0.4 mg/dL (0.5-1.5); Est. Creatinine Clearance* 132.61; Estimated Glomerular Filt Rate 124 ml/min; Iron* 14 ug/dL (37-170)
[2022-08-23 04:52] LABS: Blood Urea Nitrogen* 2 mg/dL (5-24); Calcium* 7.9 mg/dL (8.4-10.6); Carbon Dioxide* 26 mmol/L (20-32); Glucose* 144 mg/dL (60-115)
[2022-08-23 05:01] LABS: Percent Iron Saturation 5 % (20-50); Total Iron Binding Capacity 248 ug/dL (265-497)
[2022-08-23 05:12] LABS: C Reactive Protein* 14.8 mg/dL (0.5-1.0)
[2022-08-23] MEDS: LEVOTHYROXINE 100 MCG TABLET 200 MCG PO (05:25)
[2022-08-23] MEDS: metroNIDAZOLE 500 MG/100 ML PIGGYBACK IVPB ×3 (05:26→20:41)
[2022-08-23 05:47] LABS: Vitamin B12* > 1000 pg/mL (243-894)
--- NOTE | 2022-08-23 05:47 | PC.NURSE ---
SHIFT NOTE : Pt A&O, drowsy. Up SBA to BR. Afebrile, oxygen saturations >90% on RA. Denies SOB and CP. Reported intermittent nausea, no emesis, PRN Zofran given x2 with pt reporting relief. Pt only required one dose of pain medication overnight, pt denied need for further medication and acknowledges understanding to call and request pain medication from tag writer if needed.
[2022-08-23 07:48] VITALS: BP 103/62; PULSE 82; RESP 18; TEMP 36.8; O2SAT 97
[2022-08-23] MEDS: PANTOPRAZOLE SODIUM 40 MG INJ IVP (09:11)
[2022-08-23] MEDS: MORPHINE 4 MG/ML INJ IVP ×2 (09:17→20:42)
--- NOTE | 2022-08-23 09:20 | PM.GSPN ---
Subjective Subjective Date Seen: 08/23/22 Interval history: Patient is doing significantly better. She only has small amount of pain in her abdomen. She continues to pass gas and had 3 bowel movements. She had some nausea and ?vomited? small amount today. It sounds like there was a small spitting up vomit. Exam Narrative: Exam Narrative: Abdomen is soft, not distended, only mildly tender to palpation in the right lower quadrant but not anywhere else. Const: Vital Signs, click to edit/add: Vital Signs - 24 hr 08/22/22 11:27 08/22/22 15:59 08/22/22 19:00 Temperature 98.1 F 98.5 F 98.4 F Pulse Rate [Left P ulse Oximeter] 83 87 88 Respiratory Rate 18 18 16 Blood Pressure [Le ft Arm] 113/57 L 92/49 L 103/56 L Pulse Oximetry 95 96 95 Oxygen Delivery Me thod Room Air Room Air Room Air 08/22/22 23:00 08/22/22 23:00 08/23/22 03:00 Temperature 98 F 98.4 F Pulse Rate [Left P ulse Oximeter] 86 86 90 Respiratory Rate 16 16 14 Blood Pressure [Le ft Arm] 95/50 L 101/48 L Pulse Oximetry 96 95 Oxygen Delivery Me thod Room Air Room Air 08/23/22 07:48 Temperature 98.2 F Pulse Rate [Left P ulse Oximeter] 82 Respiratory Rate 18 Blood Pressure [Le ft Arm] 103/62 Pulse Oximetry 97 Oxygen Delivery Me thod Room Air Progress Note: A&P Assessment and plan (1) Abdominal pain: Status: Acute Assessment and Plan: 47-year-old female admitted to the hospital with abdominal pain that is most likely due to enteritis. Patient is improving with conservative treatment and IV antibiotics. We will advance her diet to clears. Will continue antibiotics until discharge. Most likely discharge home tomorrow.
[2022-08-23] MEDS: 5 % DEX/0.9 SOD CHL+KCL 20 mEq 1,000 ML 125 ML IV ×2 (10:10→19:59)
[2022-08-23 11:47] VITALS: BP 95/55; PULSE 69; RESP 16; TEMP 36.8; O2SAT 97
--- NOTE | 2022-08-23 12:02 | PM.IMPN1 ---
Progress Note: A&P Assessment and plan (1) Abdominal pain: Status: Acute Assessment and Plan: Etiology unclear, suspect enteritis. Appreciate Dr. Rinaldi is recommendations. Feeling better today. Advance diet to clears, and if doing well in advance further tonight. Continue IV fluids, IV antibiotics (cipro, metronidazole). If she is doing well by morning and tolerating oral intake, changed to oral antibiotics (will do total of 10 days), stop fluids and discharged home. (2) Enteritis: Problem details: Probable cause of abdominal pain. She appears more tender than is typical for enteritis. Status: Acute (3) Hypothyroidism: Problem details: Appears that current levothyroxine dosing is close to the proper dose with appropriately therapeutic TSH and free T4. These tests suggest thyroid replacement is borderline high normal. Status: Acute (4) Anemia: Problem details: Normocytic. Status: Acute Assessment and Plan: Stable. I suspect this was likely chronic and appears acute due to hemodilution. B12 level is higher than normal, no need to replace. Folate level is pending. Iron studies are all low, possibly iron deficiency anemia and/or anemia of chronic disease. I will hold off on starting iron replacement since this may upset her stomach and further complicate abdominal pain. Will have her follow-up with her primary care provider as an outpatient who can determine when it is time to start iron supplementation and if further workup is needed. (5) Hypokalemia: Status: Acute Assessment and Plan: Magnesium level is within normal limits. Replace orally. (6) Hypocalcemia: Status: Acute Assessment and Plan: Oral calcium supplementation with vitamin-D. Plan VTE prophylaxis Daniel's and SCDs. Will hold off on Lovenox due to anemia. Subjective Time Seen by Provider: 08:40 Date Seen: 08/23/22 Interval history: I spoke with Alva via personnel clerks supervisor on the iPad. She is feeling much better today. Abdominal pain and bloating have improved and she is hungry. Exam Narrative: Exam Narrative: General: No acute distress. Awake, alert, oriented. No pallor. No jaundice. Oropharynx: Clear. Mucous membranes moist. Cardiovascular: Regular rate and rhythm. No murmurs, gallops, or rubs. Respiratory: Clear to auscultation bilaterally. No wheezes or crackles. Abdomen: Bowel sounds normoactive. Soft, nondistended, mildly tender in the right lower quadrant. No rebound tenderness or guarding. Extremities: No pedal edema. Const: Vital Signs, click to edit/add: Vital Signs - 24 hr 08/22/22 15:59 08/22/22 19:00 08/22/22 23:00 Temperature 98.5 F 98.4 F Pulse Rate [Left P ulse Oximeter] 87 88 86 Respiratory Rate 18 16 16 Blood Pressure [Le ft Arm] 92/49 L 103/56 L Pulse Oximetry 96 95 Oxygen Delivery Me thod Room Air Room Air 08/22/22 23:00 08/23/22 03:00 08/23/22 07:48 Temperature 98 F 98.4 F 98.2 F Pulse Rate [Left P ulse Oximeter] 86 90 82 Respiratory Rate 16 14 18 Blood Pressure [Le ft Arm] 95/50 L 101/48 L 103/62 Pulse Oximetry 96 95 97 Oxygen Delivery Me thod Room Air Room Air Room Air 08/23/22 11:47 Temperature 98.2 F Pulse Rate [Left P ulse Oximeter] 69 Respiratory Rate 16 Blood Pressure [Le ft Arm] 95/55 L Pulse Oximetry 97 Oxygen Delivery Me thod Room Air Documenting provider has reviewed patient's vital signs: yes Labs Labs: Laboratory Results - last 24 hr 08/22/22 08/22/22 08/23/22 16:35 16:35 04:16 WBC 6.91 6.08 RBC 3.21 L 3.33 L Hgb 9.4 L 9.8 L Hct 28.0 L 28.8 L MCV 87 87 MCH 29 29 MCHC 34 34 RDW Coeff of Vivi 13.1 13.0 Plt Count 211 233 Neut % (Auto) 78.4 H 75.2 H Lymph % (Auto) 10.3 L 10.4 L [place] % (Auto) 7.1 8.2 Eos % (Auto) 2.9 3.5 Baso % (Auto) 0.1 0.2 Neut # (Auto) 5.40 4.60 Lymph # (Auto) 0.70 L 0.60 L [place] # (Auto) 0.50 0.50 Eos # (Auto) 0.20 0.21 Baso # (Auto) 0.01 0.01 Abs Immat Gran (auto) 0.08 0.15 Imm/Tot Granulo (auto) 1.2 2.5 Sodium 136 Potassium 3.2 L Chloride 106 Carbon Dioxide 31 BUN 3 L Creatinine 0.4 L Estimated Creat Clear 132.61 Estimated GFR 124 Glucose 144 H Lactate Calcium 7.9 L Ionized Calcium Deborah Iron TIBC % Saturation C-Reactive Protein Vitamin B12 08/23/22 08/23/22 08/23/22 04:16 04:16 04:16 WBC RBC Hgb Hct MCV MCH MCHC RDW Coeff of Vivi Plt Count Neut % (Auto) Lymph % (Auto) [place] % (Auto) Eos % (Auto) Baso % (Auto) Neut # (Auto) Lymph # (Auto) [place] # (Auto) Eos # (Auto) Baso # (Auto) Abs Immat Gran (auto) Imm/Tot Granulo (auto) Sodium 137 Potassium 3.0 L Chloride 108 Carbon Dioxide 26 BUN 2 L Creatinine 0.4 L Estimated Creat Clear 132.61 Estimated GFR 124 Glucose 144 H Lactate 0.6 Calcium 7.9 L Ionized Calcium [place] 1.09 L Iron 14 L TIBC 248 L % Saturation 5 L C-Reactive Protein 14.8 H Vitamin B12 > 1000 H
[2022-08-23] MEDS: POTASSIUM BICARB 25 MEQ EFFERVESCENT TAB PO ×3 (12:16→19:58)
--- NOTE | 2022-08-23 14:38 | PC.NURSE ---
Shift Summary: Patient pleasant and cooperative. Up independently ambulating in halls. Has had loose BM today, some nausea this morning, Dr. Rinaldi advanced to clear liquid diet which patient has been tolerating well.
[2022-08-23 15:00] VITALS: BP 93/45; PULSE 72; RESP 18; TEMP 36.7; O2SAT 97
--- NOTE | 2022-08-23 18:40 | PC.NURSE ---
End of shift-- Very pleasant and cooperative, Yoruba speaking patient. Ipad unit manager rn used. VSS, though mildly hypotensive with B/P 90s/40s and pt is afebrile. SPO2 maintained >90% on RA. Pt denied pain. She did c/o nausea this evening and stated that she had an emesis though it was not visualized. She was given Zofran and stated relief. She is not tolerating small amounts of clear liquids slowly. BS+ x4 and pt stated that she had a loose BM this evening and has had 4-5 during the day today which she described as very dark. Abdomen is soft and tender and appears distended. BS+ x4. LS CTA. She was up to the BR and ambulating in hallway today independently and tolerated it well. Report to oncoming shift.
[2022-08-23 20:00] VITALS: BP 104/52; PULSE 76; RESP 16; TEMP 36.8; O2SAT 97
[2022-08-23 23:00] VITALS: BP 92/49; PULSE 72; RESP 16; TEMP 36.6; O2SAT 96
[2022-08-24] MEDS: CIPROFLOXACIN 400 MG/200 ML inj IVPB ×2 (02:30→13:37)
[2022-08-24 04:00] VITALS: BP 101/52; PULSE 74; RESP 16; TEMP 36.9; O2SAT 97
[2022-08-24 05:04] LABS: C.Difficile Negative (Negative); CDIFFEPI 027 PRESUMPTIVE NEGATIVE (Negative)
[2022-08-24] MEDS: LEVOTHYROXINE 100 MCG TABLET 200 MCG PO (05:38)
[2022-08-24 05:52] LABS: Lactate* 0.7 mmol/L (0.5-1.9)
[2022-08-24 05:54] LABS: Basophils Absolute Auto 0.02 K/uL (0.00-0.30); Basophils Percent Auto 0.4 % (0.0-3.0); Eosinophils Absolute Auto 0.23 K/uL (0.00-0.50); Eosinophils Percent Auto 4.4 % (0.0-7.0); Hematocrit 31.4 % (33.0-51.0); Hemoglobin* 10.4 gm/dL (12.0-16.0); Immature Granulocytes Pct Auto 3.8 %; Lymphocytes Percent Auto 17.2 % (20-44); Mean Corpuscular HGB Conc 33 gm/dL (32-36); Mean Corpuscular Hemoglobin 29 pg (26-34); Mean Corpuscular Volume 88 fL (80-100); Monocytes Percent Auto 7.1 % (0.0-11.0); Neutrophils Absolute Auto 3.51 K/uL (1.7-7.0); Neutrophils Percent Auto 67.1 % (42.0-72.0); Platelet Count* 266 K/uL (140-440); RDW Coefficient of Variation % 13.3 % (11.5-15.5); Red Blood Count 3.59 m/uL (4.00-5.20); White Blood Count* 5.23 K/uL (4.50-11.00)
[2022-08-24 05:55] LABS: Slide Review Reflex No
[2022-08-24 06:08] LABS: Chloride* 107 mmol/L (96-114); Potassium* 3.9 mmol/L (3.6-5.1); Sodium* 138 mmol/L (135-149)
[2022-08-24 06:11] LABS: Creatinine* 0.5 mg/dL (0.5-1.5); Est. Creatinine Clearance* 106.09; Estimated Glomerular Filt Rate 117 ml/min
[2022-08-24 06:12] LABS: Blood Urea Nitrogen* 3 mg/dL (5-24); Calcium* 8.4 mg/dL (8.4-10.6); Carbon Dioxide* 26 mmol/L (20-32); Glucose* 110 mg/dL (60-115)
[2022-08-24 06:15] LABS: C Reactive Protein* 6.3 mg/dL (0.5-1.0)
--- NOTE | 2022-08-24 06:16 | PC.NURSE ---
SHIFT NOTE : Pt is A&O. Afebrile, oxygen saturations in the mid to high 90's on RA. PRN Morphine given x1 at HS for pain, pt reported adequate relief and has denied pain the rest of the shift. 2 IV's infiltrated overnight, 3 nurses attempted an IV this AM without success, will update MD, pt encouraged to start drinking more fluids. Pt denies N/V, CP, and SOB. Up SBA to BR, tolerating well. Pt took a shower last evening. Pt c/o 7 loose stools during the day yesterday, C-diff sample sent and was negative.
[2022-08-24] MEDS: metroNIDAZOLE 500 MG/100 ML PIGGYBACK IVPB ×2 (07:54→14:49)
[2022-08-24 08:48] VITALS: BP 104/51; PULSE 72; RESP 16; TEMP 36.8; O2SAT 97
[2022-08-24 09:09] LABS: HCG Qualitative Serum* Negative (Negative)
[2022-08-24] MEDS: PANTOPRAZOLE SODIUM 40 MG INJ IVP (09:22)
--- NOTE | 2022-08-24 09:44 | PM.GSPN ---
Subjective Subjective Date Seen: 08/24/22 Interval history: Patient denies abdominal pain. She denies vomiting. She continues to pass gas and had multiple bowel movements. She tolerated some clears yesterday. Exam Narrative: Exam Narrative: Abdomen is soft, not distended, minimally tender palpation in the right lower quadrant. Unchanged from yesterday. Const: Vital Signs, click to edit/add: Vital Signs - 24 hr 08/23/22 11:47 08/23/22 15:00 08/23/22 15:00 Temperature 98.2 F 98.1 F Pulse Rate [Left P ulse Oximeter] 69 72 72 Respiratory Rate 16 18 18 Blood Pressure [Le ft Arm] 95/55 L 93/45 L Pulse Oximetry 97 97 Oxygen Delivery Me thod Room Air Room Air 08/23/22 20:00 08/23/22 23:00 08/23/22 23:00 Temperature 98.2 F 98 F Pulse Rate [Left P ulse Oximeter] 76 72 72 Respiratory Rate 16 16 16 Blood Pressure [Le ft Arm] 104/52 L 92/49 L Pulse Oximetry 97 96 Oxygen Delivery Me thod Room Air Room Air 08/24/22 04:00 08/24/22 08:48 Temperature 98.4 F 98.2 F Pulse Rate [Left P ulse Oximeter] 74 72 Respiratory Rate 16 16 Blood Pressure [Le ft Arm] 101/52 L 104/51 L Pulse Oximetry 97 97 Oxygen Delivery Me thod Room Air Room Air Progress Note: A&P Assessment and plan (1) Enteritis: Status: Acute Assessment and Plan: 47-year-old female admitted to the hospital with abdominal pain that is most likely due to enteritis. Patient tolerated some clears yesterday. Her abdominal exam is unchanged from yesterday and is benign. I would continue advancing her diet as tolerated. Patient can discharge home when the hospitalist seems appropriate.
--- NOTE | 2022-08-24 10:36 | PM.IMPN1 ---
Progress Note: A&P Assessment and plan (1) Abdominal pain: Status: Acute Assessment and Plan: Etiology unclear, suspect enteritis. Appreciate Dr. Rinaldi is recommendations. I suspect her feeling of fullness may be related to having an empty stomach and getting IV antibiotics, especially metronidazole. She is agreeable to try advancing her diet further today. I will stop IV fluids. Continue IV antibiotics (cipro, metronidazole). If she is able to advance her diet successfully today, then we may be able to transition her over to oral antibiotics and discharge her home. She was having diarrhea yesterday for which she had a C diff test that was negative. (2) Enteritis: Status: Acute (3) Hypothyroidism: Problem details: Appears that current levothyroxine dosing is close to the proper dose with appropriately therapeutic TSH and free T4. These tests suggest thyroid replacement is borderline high normal. Status: Chronic (4) Anemia: Problem details: Normocytic. Status: Acute Assessment and Plan: Stable. I suspect this was likely chronic and appears acute due to hemodilution. B12 level is higher than normal, no need to replace. Folate level is pending. Iron studies are all low, possibly iron deficiency anemia and/or anemia of chronic disease. I will hold off on starting iron replacement since this may upset her stomach and further complicate abdominal pain. Will have her follow-up with her primary care provider as an outpatient who can determine when it is time to start iron supplementation and if further workup is needed. (5) Hypokalemia: Status: Resolved (6) Hypocalcemia: Status: Resolved Assessment and Plan: Oral calcium supplementation with vitamin-D. Plan VTE prophylaxis Daniel's and SCDs. Will hold off on Lovenox due to anemia. Subjective Time Seen by Provider: 10:20 Date Seen: 08/24/22 Interval history: I saw Alva this morning with our in house credit card associate. Alva feels about the same as yesterday, better than she did when she 1st came in. She has been on clears since yesterday and feels that with any sip, she gets bloating. After a few sips she feels very full. She is not hungry. Exam Narrative: Exam Narrative: General: No acute distress. Awake, alert, oriented. No pallor. No jaundice. Oropharynx: Clear. Mucous membranes moist. Cardiovascular: Regular rate and rhythm. No murmurs, gallops, or rubs. Respiratory: Clear to auscultation bilaterally. No wheezes or crackles. Abdomen: Bowel sounds normoactive. Soft, nondistended, mildly tender in the right lower quadrant. No rebound tenderness or guarding. Const: Vital Signs, click to edit/add: Vital Signs - 24 hr 08/23/22 11:47 08/23/22 15:00 08/23/22 15:00 Temperature 98.2 F 98.1 F Pulse Rate [Left P ulse Oximeter] 69 72 72 Respiratory Rate 16 18 18 Blood Pressure [Le ft Arm] 95/55 L 93/45 L Pulse Oximetry 97 97 Oxygen Delivery Me thod Room Air Room Air 08/23/22 20:00 08/23/22 23:00 08/23/22 23:00 Temperature 98.2 F 98 F Pulse Rate [Left P ulse Oximeter] 76 72 72 Respiratory Rate 16 16 16 Blood Pressure [Le ft Arm] 104/52 L 92/49 L Pulse Oximetry 97 96 Oxygen Delivery Me thod Room Air Room Air 08/24/22 04:00 08/24/22 08:48 Temperature 98.4 F 98.2 F Pulse Rate [Left P ulse Oximeter] 74 72 Respiratory Rate 16 16 Blood Pressure [Le ft Arm] 101/52 L 104/51 L Pulse Oximetry 97 97 Oxygen Delivery Me thod Room Air Room Air Documenting provider has reviewed patient's vital signs: yes Labs Labs: Laboratory Results - last 24 hr 08/24/22 08/24/22 08/24/22 04:00 05:45 05:45 WBC 5.23 RBC 3.59 L Hgb 10.4 L Hct 31.4 L MCV 88 MCH 29 MCHC 33 RDW Coeff of Vivi 13.3 Plt Count 266 Neut % (Auto) 67.1 Lymph % (Auto) 17.2 L [place] % (Auto) 7.1 Eos % (Auto) 4.4 Baso % (Auto) 0.4 Neut # (Auto) 3.51 Lymph # (Auto) 0.90 [place] # (Auto) 0.40 Eos # (Auto) 0.23 Baso # (Auto) 0.02 Abs Immat Gran (auto) 0.20 Imm/Tot Granulo (auto) 3.8 Sodium 138 Potassium 3.9 Chloride 107 Carbon Dioxide 26 BUN 3 L Creatinine 0.5 Estimated Creat Clear 106.09 Estimated GFR 117 Glucose 110 Lactate Calcium 8.4 C-Reactive Protein 6.3 H HCG, Qual Stl C.difficile Tox PCR Negative St C. diff Tox Epid 027 PRESUMPTIVE NEGATIVE 08/24/22 08/24/22 05:45 05:45 WBC RBC Hgb Hct MCV MCH MCHC RDW Coeff of Vivi Plt Count Neut % (Auto) Lymph % (Auto) [place] % (Auto) Eos % (Auto) Baso % (Auto) Neut # (Auto) Lymph # (Auto) [place] # (Auto) Eos # (Auto) Baso # (Auto) Abs Immat Gran (auto) Imm/Tot Granulo (auto) Sodium Potassium Chloride Carbon Dioxide BUN Creatinine Estimated Creat Clear Estimated GFR Glucose Lactate 0.7 Calcium C-Reactive Protein HCG, Qual Negative Stl C.difficile Tox PCR St C. diff Tox Epid 027
[2022-08-24 11:00] VITALS: BP 99/54; PULSE 62; RESP 16; TEMP 36.9; O2SAT 99
[2022-08-24 15:00] VITALS: BP 94/51; PULSE 78; RESP 16; TEMP 36.8; O2SAT 98
--- NOTE | 2022-08-24 15:40 | PC.NURSE ---
shift note: pt up indept in lr x2. pt tolerating toast and juice w/o n/v. LS clr. IV patent. pt states she had 1 small stool this a.m
--- NOTE | 2022-08-24 16:57 | P.DS_ITS ---
DS: Providers Provider Time Seen by Provider: 08:35 Date Seen: 08/25/22 Date of admission: 08/22/22 19:42 Primary care physician: Cesar Quintana MD Admitting Clinician: Kezia Lucia MD Attending Physician on discharge: Nadine Ralph MD Date of Discharge: 08/25/22 DS: Diagnosis Discharge Diagnosis (1) Abdominal pain: Status: Acute (2) Hypothyroidism: Status: Chronic Problem details: Appears that current levothyroxine dosing is close to the proper dose with appropriately therapeutic TSH and free T4. These tests suggest thyroid replacement is borderline high normal. (3) Hypocalcemia: Status: Resolved (4) Hypokalemia: Status: Resolved (5) Anemia: Status: Acute Problem details: Normocytic. (6) Enteritis: Status: Acute DS: Summary Hospital Course Hospital Course: This is a 47-year-old female who had several days of generalized abdominal pain, 1 emesis and 1 bowel movement during that time that were normal and without blood. Her appetite has been very poor and she had only some watering clear liquids over the last 2 days. She initially went to [facility] where she was evaluated with an abdominal CT that showed inflammatory changes involving distal loops of small bowel with questionable mild perienteric inflammatory changes representing infectious or inflammatory enteritis. She also had fatty liver with mild chronic gastritis. She was discharged home with pain medication, antibiotic for urinary tract infection and antiemetics. She has history of appendectomy for appendicitis, but no other abdominal surgeries. She has not had any fevers, travel, known exposure or history of gastrointestinal disease. She had a negative test in [place]. She then presented to our emergency department on 08/21/2022. She had ongoing pain. She was admitted for monitoring, IV fluids, and bowel rest, and general surgery was consulted. Dr. Rinaldi from General surgery recommended continuing IV fluids, bowel rest, and IV antibiotics. The patient's symptoms improved and her diet was advanced. She tolerated a regular diet. She continues to have some symptoms, but they are much improved from admission. She is discharged home in stable condition on oral antibiotics for a few more days. She should follow-up with her primary care provider and consider outpatient colonoscopy when her symptoms have resolved. Time Spent with Patient Time attestation: Total time spent providing and/or coordinating discharge services: Exam Narrative: Exam Narrative: General: No acute distress. Awake, alert, oriented. No pallor. No jaundice. Oropharynx: Clear. Mucous membranes moist. Cardiovascular: Regular rate and rhythm. No murmurs, gallops, or rubs. Respiratory: Clear to auscultation bilaterally. No wheezes or crackles. Abdomen: Bowel sounds present. Soft, nondistended, mildly tender in the right lower quadrant. No rebound tenderness or guarding. Const: Vital Signs, click to edit/add: Vital Signs - 24 hr 08/23/22 20:00 08/23/22 23:00 08/23/22 23:00 Temperature 98.2 F 98 F Pulse Rate [Left P ulse Oximeter] 76 72 72 Respiratory Rate 16 16 16 Blood Pressure [Le ft Arm] 104/52 L 92/49 L Pulse Oximetry 97 96 Oxygen Delivery Me thod Room Air Room Air 08/24/22 04:00 08/24/22 08:48 08/24/22 11:00 Temperature 98.4 F 98.2 F 98.4 F Pulse Rate [Left P ulse Oximeter] 74 72 62 Respiratory Rate 16 16 16 Blood Pressure [Le ft Arm] 101/52 L 104/51 L 99/54 L Pulse Oximetry 97 97 99 Oxygen Delivery Me thod Room Air Room Air Room Air DS: Data Data Completed and Pending Completed studies during hospitalization: Ordering Physician: Alba Schmidt M.D. Date of Service: 08/21/22 Procedure(s): XR abdomen min 2V Accession Number(s): [id number] cc: Cesar Quintana M.D.; Alba Schmidt M.D.~ For Patients: As a result of the 21st Century Cures Act, medical imaging exams and procedure reports are released immediately into your electronic medical record. You may view this report before your referring provider. If you have questions, please contact your health care provider. INDICATION: Abdominal pain. TECHNIQUE: Flat and upright views of the abdomen and pelvis. FINDINGS: Strands of fibrosis or atelectasis at the left lung base. No free air on the upright image. Scattered gas and stool throughout portions of the colon and rectum. No fecal impaction. No colonic constipation. Mild distention of 2 small bowel loops within the left mid to upper quadrant. This is nonspecific. A localized ileus or partial obstruction could not be entirely excluded. Follow-up radiographs are recommended in 24-48 hours depending on the clinical picture. No radiodense urinary tract calculi are identified. IMPRESSION: Two mildly prominent left mid upper quadrant small bowel loops nonspecific. Localized ileus or even an early/partial small-bowel obstruction would be difficult to exclude. Consider radiographic follow up in 24-48 hours. No oscar obstruction. No free air. Dictated by Tirso Bergman MD @ 08/21/2022 9:21:55 AM (Electronically Signed) Ordering Physician: Alba Schmidt M.D. Date of Service: 08/21/22 Procedure(s): CT abdomen pelvis w con Accession Number(s): [id number] cc: Cesar Quintana M.D.; Alba Schmidt M.D.~ For Patients: As a result of the Cures Act, medical imaging exams and procedure reports are released immediately into your electronic medical record. You may view this report before your referring provider. If you have questions, please contact your health care provider. INDICATION: INC ABD PAIN, N/V, WBC ELEVATED TECHNIQUE: CT abdomen and pelvis with 68CC [id number] IV contrast. COMPARISON: None. FINDINGS: The liver is normal in size, shape and attenuation. Moderate distension of the gallbladder without evidence of wall thickening or pericholecystic fluid. No biliary duct dilation. The spleen, adrenal glands and pancreas are within normal limits. The kidneys are unremarkable. No evidence of bowel obstruction. There are several abnormally dilated loops of small bowel throughout the abdomen most notably within the right greater than left lower abdomen. There is prominent surrounding inflammation as well as fluid predominantly contained within the mesentery. Some of which may demonstrate early organization suspicious for abscess, for example on series 4, image 37 measuring 1.1 x 2.2 x 2.4 cm). No evidence of free air or pneumatosis. The uterus appears unremarkable. Low-density lesion right adnexa likely a follicular cyst measuring 1.7 cm. Mild patchy bibasilar atelectasis or consolidation. IMPRESSION: There are several abnormally dilated loops of small bowel throughout the abdomen most notably within the right greater than left lower abdomen. There is prominent surrounding inflammation as well as a small amount of fluid predominantly contained within the mesentery. Some of the fluid may demonstrate early organization suspicious for abscess, for example on series 4, image 37 measuring 1.1 x 2.2 x 2.4 cm. Overall, findings are concerning for severe enteritis predominantly involving the distal small bowel (ileitis). Of note, the appendix is not definitely visualized and acute appendicitis (perhaps ruptured) can`t entirely be excluded. Mild patchy bibasilar atelectasis or consolidation. Please note that all CT scans at this facility use dose modulation, iterative reconstruction, and/or weight-based dosing when appropriate to reduce radiation dose to as low as reasonably achievable. Dictated by Bautista Vitale MD @ 08/21/2022 11:03:31 AM (Electronically Signed) Labs on day of discharge: Labs from last 24 hours 08/24/22 08/24/22 08/24/22 05:45 05:45 05:45 WBC RBC Hgb Hct MCV MCH MCHC RDW Coeff of Vivi Plt Count Neut % (Auto) Lymph % (Auto) [place] % (Auto) Eos % (Auto) Baso % (Auto) Neut # (Auto) Lymph # (Auto) [place] # (Auto) Eos # (Auto) Baso # (Auto) Abs Immat Gran (auto) Imm/Tot Granulo (auto) Sodium 138 Potassium 3.9 Chloride 107 Carbon Dioxide 26 BUN 3 L Creatinine 0.5 Estimated Creat Clear 106.09 Estimated GFR 117 Glucose 110 Lactate 0.7 Calcium 8.4 C-Reactive Protein 6.3 H HCG, Qual Negative Stl C.difficile Tox PCR St C. diff Tox Epid 027 08/24/22 08/24/22 05:45 04:00 WBC 5.23 RBC 3.59 L Hgb 10.4 L Hct 31.4 L MCV 88 MCH 29 MCHC 33 RDW Coeff of Vivi 13.3 Plt Count 266 Neut % (Auto) 67.1 Lymph % (Auto) 17.2 L [place] % (Auto) 7.1 Eos % (Auto) 4.4 Baso % (Auto) 0.4 Neut # (Auto) 3.51 Lymph # (Auto) 0.90 [place] # (Auto) 0.40 Eos # (Auto) 0.23 Baso # (Auto) 0.02 Abs Immat Gran (auto) 0.20 Imm/Tot Granulo (auto) 3.8 Sodium Potassium Chloride Carbon Dioxide BUN Creatinine Estimated Creat Clear Estimated GFR Glucose Lactate Calcium C-Reactive Protein HCG, Qual Stl C.difficile Tox PCR Negative St C. diff Tox Epid 027 PRESUMPTIVE NEGATIVE Discharge Plan Discharge Disposition: Home, Self-Care Date of Admission: 08/22/22 19:42 Attending Provider on Discharge: Nadine Ralph Primary Care Provider: Cesar Quintana Condition: Stable Anticipated Discharge Date/Time: 08/25/22 08:55 Discharge Medications: New amoxicillin-pot clavulanate 875-125 mg tablet 1 tab PO BID Qty: 10 0RF omeprazole 20 mg tablet,delayed release (DR/EC) 20 mg PO DAILY Qty: 30 2RF Continued levothyroxine 200 mcg tablet 200 mcg PO DAILY Label Comments: TAKE 1 TABLET EVERY DAY BY ORAL ROUTE. cholecalciferol (vitamin D3) 50 mcg (2,000 unit) capsule 50 mcg PO DAILY Label Comments: TAKE 1 TABLET EVERY DAY BY ORAL ROUTE. Discontinued cephalexin 500 mg capsule 500 mg PO BID Label Comments: TAKE 1 CAPSULE BY MOUTH TWICE DAILY FOR 7 DAYS Discharge Orders: Discharge Order (Routine); Ordered 08/25/22 Ordered By: Nadine Ralph Patient Education: Omeprazole (By mouth), Amoxicillin/Clavulanate Potassium (By mouth), Enteritis (DC) Activity Level: No Restrictions Discharge Diet: Regular Follow Up Appointments: Cesar Quintana MD [Primary Care Provider] - (please follow up with PCP in 3-5 days) Forms: Get[employer] Info Instructions
[2022-08-24] MEDS: AMOXICILLIN/CLAVULANATE 875 mg/125 mg TABLET PO (18:30)
[2022-08-24 19:00] VITALS: BP 103/59; PULSE 69; RESP 16; TEMP 36.8; O2SAT 97
--- NOTE | 2022-08-24 22:33 | PC.NURSE ---
End of Shift: Patient pleasant and cooperative. iPad bakery products checker used. Afebrile. Denies pain throughout shift. Tolerated a baked potato and yogurt for dinner with no nausea. C/o some fullness/bloating after eating. Patient worried about discharging home tonight and that symptoms may return after advancing her diet. Updated MD. Up independently in room and walking in hallway.
[2022-08-24 23:00] VITALS: BP 98/51; PULSE 63; RESP 16; TEMP 36.8; O2SAT 95
[2022-08-25 03:00] VITALS: BP 98/40; PULSE 77; RESP 16; TEMP 36.8; O2SAT 95
--- NOTE | 2022-08-25 05:27 | PC.NURSE ---
Shift note: Pt complained of feeling bloated but no abdominal pain accompanies that. No n/v/d. Pt is independent in room. Bp has been on the lower side of normal. Confirmed right lower quadrant tenderness but refused pain medication.
[2022-08-25] MEDS: LEVOTHYROXINE 100 MCG TABLET 200 MCG PO (06:33)
[2022-08-25 06:46] LABS: Basophils Absolute Auto 0.03 K/uL (0.00-0.30); Basophils Percent Auto 0.5 % (0.0-3.0); Eosinophils Absolute Auto 0.18 K/uL (0.00-0.50); Hematocrit 34.5 % (33.0-51.0); Hemoglobin* 11.4 gm/dL (12.0-16.0); Immature Granulocytes Abs Auto 0.46 K/uL (0.00-0.30); Immature Granulocytes Pct Auto 7.7 %; Lymphocytes Percent Auto 19.3 % (20-44); Mean Corpuscular HGB Conc 33 gm/dL (32-36); Mean Corpuscular Hemoglobin 29 pg (26-34); Mean Corpuscular Volume 86 fL (80-100); Monocytes Percent Auto 6.7 % (0.0-11.0); Neutrophils Absolute Auto 3.73 K/uL (1.7-7.0); Neutrophils Percent Auto 62.8 % (42.0-72.0); Platelet Count* 279 K/uL (140-440); RDW Coefficient of Variation % 13.1 % (11.5-15.5); White Blood Count* 5.95 K/uL (4.50-11.00)
[2022-08-25 06:49] LABS: Slide Review Reflex No
[2022-08-25 06:59] LABS: Chloride* 104 mmol/L (96-114); Sodium* 136 mmol/L (135-149)
[2022-08-25 07:00] VITALS: BP 99/49; PULSE 54; RESP 16; TEMP 36.8; O2SAT 99
[2022-08-25 07:02] LABS: Creatinine* 0.5 mg/dL (0.5-1.5); Est. Creatinine Clearance* 106.09; Estimated Glomerular Filt Rate 117 ml/min
[2022-08-25 07:03] LABS: Blood Urea Nitrogen* 5 mg/dL (5-24); Calcium* 8.5 mg/dL (8.4-10.6); Carbon Dioxide* 25 mmol/L (20-32); Glucose* 112 mg/dL (60-115)
[2022-08-25 08:42] LABS: Folate, Serum 12.6 ng/mL (>=5.9)
[2022-08-25] MEDS: PANTOPRAZOLE SODIUM 40 MG INJ IVP (09:12)
[2022-08-25] MEDS: AMOXICILLIN/CLAVULANATE 875 mg/125 mg TABLET PO (09:52)
--- NOTE | 2022-08-25 10:46 | PC.NURSE ---
shift note: vss stable. pt afeb. pt states she feels abd is bloated after eating. pt states she continues to have pain in LLQ and RUQ when area palpated. pt passing flatus. pt denies having BM. Pt tolerating regular diet. Instructed pt at dc of f/u orders. Hospital paraprofessional interpreter used at bedside during dc instructions. Home medications sent with pt at dc after review. Belongings sent with pt after review. IV dc'd intact Lt hand. copies of dc instructions sent with pt.
== END 2022-08-25 14:52 | disposition home or self-care (01) | DRG 392 ==
LOC: ED 13:14 → MEDSURG 14:51
PROVIDERS: Family Medicine; Admitting Provider Family Medicine; Emergency Provider Family Medicine; PCP Surgery; Visit Provider Family Medicine
DX: A09 Infectious gastroenteritis and colitis, unspecified (principal); R10.84 Generalized abdominal pain; D64.9 Anemia, unspecified; E83.51 Hypocalcemia; E87.6 Hypokalemia; K76.0 Fatty (change of) liver, not elsewhere classified; D63.8 Anemia in other chronic diseases classified elsewhere; D50.9 Iron deficiency anemia, unspecified; E03.9 Hypothyroidism, unspecified
CPT/HCPCS: 36415; 74019; 74177; 80048; 80053; 81001; 82330; 82607; 82746; 83540; 83550; 83605; 83735; 84439; 84443; 84703; 85025; 86140; 87493; 87635; 94761; 99284; 99285; A9270; C9113; G0378; J0744; J1885; J2270; J2405; J3480; J7030; J7042; Q9967; S0030